=== PATIENT | male | born 1975 | race Two or more races ===

== ENCOUNTER 2018-11-11 13:10 | Inpatient (IN) | payer MEDICAID ==
--- NOTE | 2018-11-11 13:21 | EDM.PDOC ---
ED HPI GENERAL MEDICAL PROBLEM - General Stated Complaint: CHEST PAIN SOB Time Seen by Provider: 11/11/18 13:10 Source of Information: Reports: Patient, Family History Limitations: Reports: Respiratory Distress - History of Present Illness INITIAL COMMENTS - FREE TEXT/NARRATIVE: 42 y.o.w.m -smoker-[facility] do to and was transferred to the ED for further care. Pt C/P SSCP and sop. His O2 sat was 89/90% on RA on arrival, he was diaphoretic and had more pain when taking a deep breath. He can talk 2 minor sentences. No trauma, No N/D/D but has occ F/C. BP 135/76 Oc 91 % on RA Pulse 83 Temp 99.7 RR 24 Onset Date: 11/08/18 Onset Time: 08:00 Duration: Day(s):, Getting Worse, Intermittent Location: Reports: Chest Quality: Reports: Ache, Burning, Dull Severity: Moderate Improves with: Reports: Rest Worsens with: Reports: Movement Context: Reports: Other (fever, chills CP) Associated Symptoms: Reports: Chest Pain, Cough, Diaphoresis, Fever/Chills, Loss of Appetite, Weakness Chest Pain Score (Numeric/FACES): 8 - Related Data Allergies Allergy/AdvReac Type Severity Reaction Status Date / Time Penicillins Allergy Numbness Verified 03/24/15 03:26 Home Meds: Home Meds Gabapentin [Neurontin] 300 mg PO BID 08/02/13 [History] ClonazePAM [KlonoPIN] 0.5 mg PO BID PRN 01/13/14 [History] Amitriptyline [Elavil] 50,100 mg PO BEDTIME 07/06/14 [History] OXcarbazepine [Trileptal] 600 mg PO BID 07/06/14 [History] Ibuprofen 600 mg PO Q4H PRN 03/24/15 [History] Metoprolol Tartrate 25 mg PO DAILY 03/24/15 [History] Sertraline [Zoloft] 50 mg PO DAILY 03/24/15 [History] Past Medical History - Past Health History Medical/Surgical History: Denies Medical/Surgical History Social & Family History - Living Situation & Occupation Living situation: Reports: with Significant Other Occupation: Unemployed ED ROS GENERAL - Review of Systems Review Of Systems: See Below Constitutional: Reports: Weakness, Diaphoresis, Decreased Appetite, Weight Loss HEENT: Reports: No Symptoms Respiratory: Reports: Shortness of Breath, Wheezing, Pleuritic Chest Pain Cardiovascular: Reports: Chest Pain Endocrine: Reports: No Symptoms GI/Abdominal: Reports: No Symptoms : Reports: No Symptoms Musculoskeletal: Reports: No Symptoms Skin: Reports: No Symptoms Neurological: Reports: No Symptoms Psychiatric: Reports: No Symptoms Hematologic/Lymphatic: Reports: No Symptoms Immunologic: Reports: No Symptoms ED EXAM, GENERAL - Physical Exam Exam: See Below Exam Limited By: Physical Impairment (weak) General Appearance: Alert, Moderate Distress Eye Exam: Bilateral Eye: Normal Inspection Ears: Normal External Exam Ear Exam: Bilateral Ear: Auricle Normal Nose: Normal Inspection Throat/Mouth: Normal Lips, Normal Voice, No Airway Compromise, Other (poor dentition) Head: Atraumatic, Normocephalic Neck: Normal Inspection, Supple, Non-Tender Respiratory/Chest: Respiratory Distress, Crackles, Rhonchi, Wheezing, Pleural Rub Cardiovascular: Normal Peripheral Pulses, Regular Rate, Rhythm, No Edema, No Gallop, No JVD Peripheral Pulses: 2+: Brachial (R) GI/Abdominal: Normal Bowel Sounds, Soft, Non-Tender, No Organomegaly, Pelvis Stable (Male) Exam: Deferred Rectal (Males) Exam: Deferred Back Exam: Normal Inspection, Full Range of Motion Extremities: Normal Inspection, Normal Range of Motion, Non-Tender Neurological: Alert, Oriented, CN II-XII Intact, Normal Cognition, Normal Gait Psychiatric: Normal Affect, Normal Mood Skin Exam: Dry, Intact, Normal Color, Pallor Lymphatic: No Adenopathy EKG INTERPRETATION EKG Date: 11/11/18 Time: 13:30 Rhythm: NSR Rate (Beats/Min): 84 [place]: Normal P-Wave: Present QRS: Normal ST-T: Normal QT: Normal Comparison: NA - No Prior EKG Course - Vital Signs Text/Narrative:: 42 y.o.w.m -smoker-[facility] to and was transferred to the ED for further care. Pt C/P SSCP and sop. His O2 sat was 89/90% on RA on arrival, he was diaphoretic and had more pain when taking a deep breath. He can talk 2 minor sentences. No trauma, No N/D/D but has occ F/C. BP 135/76 Oc 91 % on RA Pulse 83 Temp 99.7 RR 24 PE: Pale, sick appearing 42 y.o.w.m with pleuritic C/P, F/C and sob Imaging: CXR: infiltrate LLL of lung, official report is pending Labs: CBC: Pos for WBC 14.7 PLts 675 K 3.2 Lactic acid Nl Impression: LLL infiltrate of lung, UDS pos for Amphetamine, hypokalemia Tx: ASA, Levoquine Potassium, Duo neb, O2 by NC 2.53 pm Consultation: Dr. Wylie, Hospitalist: Accepted the pt for admission Reexam: Improved. Plan: Admid to minor for inpatient. Last Recorded V/S: Last Vital Signs Temp 36.9 C 11/12/18 03:15 Pulse 83 11/11/18 13:15 Resp 17 11/12/18 03:15 BP 128/75 11/12/18 03:15 Pulse Ox 94 L 11/12/18 03:15 - Orders/Labs/Meds Orders: Active Orders 24 hr Category Date Time Status Patient Status [ADT] Routine ADT 11/11/18 14:58 Active Oxygen Therapy [RC] PRN Care 11/11/18 14:58 Active RT Aerosol Therapy [RC] ASDIRECTED Care 11/11/18 15:01 Active Up With Assistance [RC] 09,13,17,21 Care 11/11/18 14:58 Active Vital Signs [RC] 00,04,08,12,16,20 Care 11/11/18 14:58 Active Regular Diet [DIET] Diet 11/11/18 Breakfast Ordered CXR [Chest 1V Frontal] [CR] Stat Exams 11/11/18 14:34 Taken CULTURE BLOOD [BC] Urgent Lab 11/11/18 14:50 Received CULTURE BLOOD [BC] Urgent Lab 11/11/18 15:05 Received Albuterol [Proventil Neb Soln] Med 11/11/18 14:58 Active 2.5 mg NEB Q2H PRN Ondansetron [Zofran ODT] Med 11/11/18 14:58 Active 4 mg PO Q4H PRN Sodium Chloride 0.9% [Saline Flush] Med 11/11/18 14:58 Active 10 ml FLUSH ASDIRECTED PRN Blood Culture x2 Reflex Set [OM.PC] Urgent Oth 11/11/18 14:51 Ordered Peripheral IV Insertion Adult [OM.PC] Routine Oth 11/11/18 14:58 Ordered Resuscitation Status Routine Resus Stat 11/11/18 14:58 Ordered Medication Orders Acetaminophen (Tylenol) 650 mg PO Q4H PRN PRN Reason: Pain Last Admin: 11/11/18 19:55 Dose: 650 mg Albuterol (Proventil Neb Soln) 2.5 mg NEB Q2H PRN PRN Reason: Shortness Of Breath/wheezing Hydroxyzine HCl (Atarax) 25 mg PO BEDTIME PRN PRN Reason: Insomnia Last Admin: 11/12/18 03:05 Dose: 25 mg Levofloxacin/Dextrose 750 mg/ (Premix) 150 mls @ 100 mls/hr IV Q24H ORALIA Vancomycin HCl 1 gm/ Sodium (Chloride) 250 mls @ 167 mls/hr IV Q12H ORALIA Last Admin: 11/12/18 06:09 Dose: 167 mls/hr Admin: 11/11/18 19:02 Dose: 167 mls/hr Ondansetron HCl (Zofran Odt) 4 mg PO Q4H PRN PRN Reason: nausea, able to take PO Sodium Chloride (Saline Flush) 10 ml FLUSH ASDIRECTED PRN PRN Reason: Keep Vein Open Last Admin: 11/11/18 20:58 Dose: 10 ml Admin: 11/11/18 19:02 Dose: 10 ml Labs: Laboratory Tests 11/11/18 11/11/18 11/11/18 Range/Units 13:30 13:30 13:30 WBC 14.8 H (4.5-12.0) X10-3/uL RBC 5.13 (4.30-5.75) x10(6)uL Hgb 14.8 (11.5-15.5) g/dL Hct 43.1 (30.0-51.3) % MCV 84.0 (80-96) fL MCH 28.9 (27.7-33.6) pg MCHC 34.4 (32.2-35.4) g/dL RDW 13.3 (11.5-15.5) % Plt Count 675 H (125-369) X10(3)uL MPV 8.5 (7.4-10.4) fL Neut % (Auto) 78.1 (46-82) % Lymph % (Auto) 11.1 L (13-37) % Park % (Auto) 7.8 (4-12) % Eos % (Auto) 1 (1.0-5.0) % Baso % (Auto) 3 H (0-2) % Neut # (Auto) 11.5 H (1.6-8.3) # Lymph # (Auto) 1.6 (0.6-5.0) # Park # (Auto) 1.2 (0.0-1.3) # Eos # (Auto) 0.1 (0.0-0.8) # Baso # (Auto) 0.4 H (0.0-0.2) # PT 14.6 H (8.7-11.1) INR 1.52 H (0.89-1.13) D-Dimer, Quantitative 0.54 (0.0-0.59) mg/LFEU Sodium 135 (135-145) mmol/L Potassium 3.2 L (3.5-5.3) mmol/L Chloride 101 (100-110) mmol/L Carbon Dioxide 20 L (21-32) mmol/L BUN 15 (7-18) mg/dL Creatinine 0.9 (0.70-1.30) mg/dL Est Cr Clr Drug Dosing TNP Estimated GFR (MDRD) > 60 (>60) BUN/Creatinine Ratio 16.7 (9-20) Glucose 143 H (80-116) mg/dL Lactic Acid (0.4-2.2) mmol/L Calcium 8.8 (8.6-10.2) mg/dL Magnesium (1.8-2.5) mg/dL Troponin I (<0.017-0.056) ng/mL Urine Color (YELLOW) Urine Appearance (CLEAR) Urine pH (5.0-6.5) Ur Specific [place] (1.010-1.025) Urine Protein (NEGATIVE) mg/dL Urine Glucose (UA) (NEGATIVE) mg/dL Urine Ketones (NEGATIVE) mg/dL Urine Occult Blood (NEGATIVE) Urine Nitrite (NEGATIVE) Urine Bilirubin (NEGATIVE) Urine Urobilinogen (NEGATIVE) mg/dL Ur Leukocyte Esterase (NEGATIVE) Urine RBC (0) Urine WBC (0) Ur Squamous Epith Cells (NS,R,O) Urine Bacteria (NS) Urine Mucus (NS) Urine Opiates Screen (NEGATIVE) Ur Oxycodone Screen (NEGATIVE) Ur Propoxyphene Screen (NEGATIVE) Ur Barbituates Screen (NEGATIVE) Ur Tricyclics Screen (NEGATIVE) Ur Phencyclidine Scrn (NEGATIVE) Ur Amphetamine Screen (NEGATIVE) Urine MDMA Screen (NEGATIVE) U Benzodiazepines Scrn (NEGATIVE) U Cocaine Metab Screen (NEGATIVE) U Marijuana (THC) Screen (NEGATIVE) 11/11/18 11/11/18 11/11/18 Range/Units 13:30 13:30 14:30 WBC (4.5-12.0) X10-3/uL RBC (4.30-5.75) x10(6)uL Hgb (11.5-15.5) g/dL Hct (30.0-51.3) % MCV (80-96) fL MCH (27.7-33.6) pg MCHC (32.2-35.4) g/dL RDW (11.5-15.5) % Plt Count (125-369) X10(3)uL MPV (7.4-10.4) fL Neut % (Auto) (46-82) % Lymph % (Auto) (13-37) % Park % (Auto) (4-12) % Eos % (Auto) (1.0-5.0) % Baso % (Auto) (0-2) % Neut # (Auto) (1.6-8.3) # Lymph # (Auto) (0.6-5.0) # Park # (Auto) (0.0-1.3) # Eos # (Auto) (0.0-0.8) # Baso # (Auto) (0.0-0.2) # PT (8.7-11.1) INR (0.89-1.13) D-Dimer, Quantitative (0.0-0.59) mg/LFEU Sodium (135-145) mmol/L Potassium (3.5-5.3) mmol/L Chloride (100-110) mmol/L Carbon Dioxide (21-32) mmol/L BUN (7-18) mg/dL Creatinine (0.70-1.30) mg/dL Est Cr Clr Drug Dosing Estimated GFR (MDRD) (>60) BUN/Creatinine Ratio (9-20) Glucose (80-116) mg/dL Lactic Acid (0.4-2.2) mmol/L Calcium (8.6-10.2) mg/dL Magnesium 2.0 (1.8-2.5) mg/dL Troponin I < 0.017 L (<0.017-0.056) ng/mL Urine Color [place] (YELLOW) Urine Appearance Slightly cloudy (CLEAR) Urine pH 5.0 (5.0-6.5) Ur Specific [place] 1.020 (1.010-1.025) Urine Protein 30 H (NEGATIVE) mg/dL Urine Glucose (UA) Normal (NEGATIVE) mg/dL Urine Ketones 50 H (NEGATIVE) mg/dL Urine Occult Blood Negative (NEGATIVE) Urine Nitrite Negative (NEGATIVE) Urine Bilirubin Small H (NEGATIVE) Urine Urobilinogen 4 H (NEGATIVE) mg/dL Ur Leukocyte Esterase Negative (NEGATIVE) Urine RBC 0-5 (0) Urine WBC 0-5 (0) Ur Squamous Epith Cells Many H (NS,R,O) Urine Bacteria Moderate H (NS) Urine Mucus Many H (NS) Urine Opiates Screen (NEGATIVE) Ur Oxycodone Screen (NEGATIVE) Ur Propoxyphene Screen (NEGATIVE) Ur Barbituates Screen (NEGATIVE) Ur Tricyclics Screen (NEGATIVE) Ur Phencyclidine Scrn (NEGATIVE) Ur Amphetamine Screen (NEGATIVE) Urine MDMA Screen (NEGATIVE) U Benzodiazepines Scrn (NEGATIVE) U Cocaine Metab Screen (NEGATIVE) U Marijuana (THC) Screen (NEGATIVE) 11/11/18 11/11/18 Range/Units 14:30 14:50 WBC (4.5-12.0) X10-3/uL RBC (4.30-5.75) x10(6)uL Hgb (11.5-15.5) g/dL Hct (30.0-51.3) % MCV (80-96) fL MCH (27.7-33.6) pg MCHC (32.2-35.4) g/dL RDW (11.5-15.5) % Plt Count (125-369) X10(3)uL MPV (7.4-10.4) fL Neut % (Auto) (46-82) % Lymph % (Auto) (13-37) % Park % (Auto) (4-12) % Eos % (Auto) (1.0-5.0) % Baso % (Auto) (0-2) % Neut # (Auto) (1.6-8.3) # Lymph # (Auto) (0.6-5.0) # Park # (Auto) (0.0-1.3) # Eos # (Auto) (0.0-0.8) # Baso # (Auto) (0.0-0.2) # PT (8.7-11.1) INR (0.89-1.13) D-Dimer, Quantitative (0.0-0.59) mg/LFEU Sodium (135-145) mmol/L Potassium (3.5-5.3) mmol/L Chloride (100-110) mmol/L Carbon Dioxide (21-32) mmol/L BUN (7-18) mg/dL Creatinine (0.70-1.30) mg/dL Est Cr Clr Drug Dosing Estimated GFR (MDRD) (>60) BUN/Creatinine Ratio (9-20) Glucose (80-116) mg/dL Lactic Acid 1.0 (0.4-2.2) mmol/L Calcium (8.6-10.2) mg/dL Magnesium (1.8-2.5) mg/dL Troponin I (<0.017-0.056) ng/mL Urine Color (YELLOW) Urine Appearance (CLEAR) Urine pH (5.0-6.5) Ur Specific [place] (1.010-1.025) Urine Protein (NEGATIVE) mg/dL Urine Glucose (UA) (NEGATIVE) mg/dL Urine Ketones (NEGATIVE) mg/dL Urine Occult Blood (NEGATIVE) Urine Nitrite (NEGATIVE) Urine Bilirubin (NEGATIVE) Urine Urobilinogen (NEGATIVE) mg/dL Ur Leukocyte Esterase (NEGATIVE) Urine RBC (0) Urine WBC (0) Ur Squamous Epith Cells (NS,R,O) Urine Bacteria (NS) Urine Mucus (NS) Urine Opiates Screen Negative (NEGATIVE) Ur Oxycodone Screen Negative (NEGATIVE) Ur Propoxyphene Screen Negative (NEGATIVE) Ur Barbituates Screen Negative (NEGATIVE) Ur Tricyclics Screen Negative (NEGATIVE) Ur Phencyclidine Scrn Negative (NEGATIVE) Ur Amphetamine Screen Positive H (NEGATIVE) Urine MDMA Screen Negative (NEGATIVE) U Benzodiazepines Scrn Negative (NEGATIVE) U Cocaine Metab Screen Negative (NEGATIVE) U Marijuana (THC) Screen Negative (NEGATIVE) Meds: Medications Generic Name Dose Route Start Last Admin Trade Name Manuel PRN Reason Stop Dose Admin Acetaminophen 650 mg 11/11/18 19:39 11/11/18 19:55 Tylenol PO 650 mg Q4H PRN Administration Pain Albuterol 2.5 mg 11/11/18 14:58 Proventil Neb Soln NEB Q2H PRN Shortness Of Breath/wheezing Hydroxyzine HCl 25 mg 11/12/18 02:51 11/12/18 03:05 Atarax PO 25 mg BEDTIME PRN Administration Insomnia Levofloxacin/Dextrose 750 mg/ 150 mls @ 100 mls/hr 11/12/18 15:00 Premix IV Q24H ORALIA Vancomycin HCl 1 gm/ Sodium 250 mls @ 167 mls/hr 11/11/18 18:00 11/12/18 06: 09 Chloride IV 167 mls/hr Q12H ORALIA Administration Ondansetron HCl 4 mg 11/11/18 14:58 Zofran Odt PO Q4H PRN nausea, able to take PO Sodium Chloride 10 ml 11/11/18 14:58 11/11/18 20:58 Saline Flush FLUSH 10 ml ASDIRECTED PRN Administration Keep Vein Open Discontinued Medications Generic Name Dose Route Start Last Admin Trade Name Manuel PRN Reason Stop Dose Admin Levofloxacin/Dextrose 500 mg/ 100 mls @ 100 mls/hr 11/11/18 14:53 11/11/18 15 :17 Premix IV 11/11/18 15:52 100 mls/hr ONETIME ONE Administration Levofloxacin/Dextrose Confirm 11/11/18 15:08 11/11/18 16:54 Levaquin In D5w 500 Mg/100 Ml Administered 11/11/18 15:09 Not Given Dose 100 mls @ as directed IV .STK-MED ONE Ibuprofen 600 mg 11/11/18 22:09 11/11/18 22:15 Motrin PO 11/11/18 22:10 600 mg ONETIME ONE Administration Influenza Virus Vaccine 60 mcg 11/11/18 16:15 Fluzone Quad 1516-7176 Syringe IM 11/11/18 16:16 .ONCE ONE Tuberculin PPD 5 unit 11/11/18 18:35 11/11/18 19:07 Aplisol IDERM 11/11/18 18:36 5 unit ONETIME ONE Administration Vancomycin HCl Confirm 11/11/18 18:54 11/11/18 19:00 Vancomycin Administered 11/11/18 18:55 Not Given Dose 1 gm .ROUTE .STK-MED ONE Vancomycin HCl Confirm 11/12/18 06:03 11/12/18 06:10 Vancomycin Administered 11/12/18 06:04 Not Given Dose 1 gm .ROUTE .STK-MED ONE Departure - Departure Time of Disposition: 15:00 Disposition: Admitted As Inpatient 67 Condition: Fair Clinical Impression: Pneumonia - My Orders Last 24 Hours: My Active Orders 11/11/18 14:34 CXR [Chest 1V Frontal] [CR] Stat 11/11/18 14:50 CULTURE BLOOD [BC] Urgent 11/11/18 14:51 Blood Culture x2 Reflex Set [OM.PC] Urgent 11/11/18 14:58 Patient Status [ADT] Routine Oxygen Therapy [RC] PRN Up With Assistance [RC] 09,13,17,21 Vital Signs [RC] 00,04,08,12,16,20 Albuterol [Proventil Neb Soln] 2.5 mg NEB Q2H PRN Ondansetron [Zofran ODT] 4 mg PO Q4H PRN Sodium Chloride 0.9% [Saline Flush] 10 ml FLUSH ASDIRECTED PRN Peripheral IV Insertion Adult [OM.PC] Routine Resuscitation Status Routine 11/11/18 15:01 RT Aerosol Therapy [RC] ASDIRECTED 11/11/18 15:05 CULTURE BLOOD [BC] Urgent 11/11/18 Breakfast Regular Diet [DIET] - Assessment/Plan Last 24 Hours: My Active Orders 11/11/18 14:34 CXR [Chest 1V Frontal] [CR] Stat 11/11/18 14:50 CULTURE BLOOD [BC] Urgent 11/11/18 14:51 Blood Culture x2 Reflex Set [OM.PC] Urgent 11/11/18 14:58 Patient Status [ADT] Routine Oxygen Therapy [RC] PRN Up With Assistance [RC] 09,13,17,21 Vital Signs [RC] 00,04,08,12,16,20 Albuterol [Proventil Neb Soln] 2.5 mg NEB Q2H PRN Ondansetron [Zofran ODT] 4 mg PO Q4H PRN Sodium Chloride 0.9% [Saline Flush] 10 ml FLUSH ASDIRECTED PRN Peripheral IV Insertion Adult [OM.PC] Routine Resuscitation Status Routine 11/11/18 15:01 RT Aerosol Therapy [RC] ASDIRECTED 11/11/18 15:05 CULTURE BLOOD [BC] Urgent 11/11/18 Breakfast Regular Diet [DIET]
[2018-11-11] MEDS ORDERED: Levofloxacin/Dextrose 5%-Water 500 MG in Premix Bag 1 BAG IV ONE (14:53)
[2018-11-11] MEDS ORDERED: Albuterol 0.083% 2.5 MG/3 ML Neb Soln NEB PRN (14:58)
[2018-11-11] MEDS ORDERED: Ondansetron 4 MG Tab.DIS PO PRN (14:58)
[2018-11-11] MEDS ORDERED: Levofloxacin/Dextrose 5%-Water 100 ML IV ONE (15:08)
[2018-11-11] MEDS ORDERED: Tuberculin, PPD 5 Units/0.1 ML 1 ML MDV IDERM ONE (18:35)
[2018-11-11] MEDS ORDERED: Vancomycin 1 GM SDV ONE (18:54)
[2018-11-11] MEDS: Sodium Chloride 0.9% 10 ML Syringe FLUSH PRN ×2 (19:02→20:58)
[2018-11-11] MEDS: Acetaminophen 325 MG Tab PO PRN (19:55)
[2018-11-11] MEDS ORDERED: Ibuprofen 600 MG Tab PO ONE (22:09)
[2018-11-12] MEDS ORDERED: hydrOXYzine HCl 25 MG Tab PO PRN (02:51)
[2018-11-12] MEDS ORDERED: Vancomycin 1 GM SDV ONE ×2 (06:03→20:46)
--- NOTE | 2018-11-12 10:13 | HP ---
ADMIT DATE: 11/11/2018 SUBJECTIVE: Andrew Phillips is a 42-year-old male, admitted yesterday with complicated pneumonia. He has been ill for about three weeks' duration. Cough, productive, intermittent, thick tenacious sputum, low-grade fever, and general disability. Decreased appetite present. He was admitted to the hospital for treatment. Laboratory studies showed a white count of 14,800, platelets of 675, and high neutrophils. D-dimer was normal. INR 1.52, uncertain reason. Lactic acid 1.0. Troponin 0. Urine noted ketones. Had a pretty good night. We did obtain a sputum. Microbiology, blood cultures negative. Negative A and B viral testing. OBJECTIVE: VITAL SIGNS: 36.9, 66, 128/75, 17, and 94% on 2 L. GENERAL: Appears comfortable. Speech was fluent. NECK: Benign. No JVD. CHEST: Decreased breath sounds. Rales lower two-thirds of left lung. Reasonably good air exchange of right lung. HEART: Distant heart sounds. No ectopy or murmur. ABDOMEN: Benign. SKIN: Without rash. ASSESSMENT: Complicated right-sided pneumonia. PLAN: Testing for tuberculosis, Mantoux on board. Respiratory precautions, presently on Levaquin and vancomycin. Allergy to penicillin, prevents the use of Unasyn. Aggressive RT treatment. Medications and care on board. Lengthy stay expected, TB testing planned. /[id number] ARIE/NIELS PAULINO
[2018-11-12] MEDS: Acetaminophen 325 MG Tab PO PRN ×3 (10:35→22:40)
[2018-11-12] MEDS ORDERED: Iopamidol 755 Mg/ML 100 ML Bottle IV ONE (11:56)
[2018-11-12] MEDS: Sodium Chloride 0.9% 10 ML Syringe FLUSH PRN ×2 (15:00→16:58)
[2018-11-12] MEDS: Levofloxacin/Dextrose 5%-Water 750 MG in Premix Bag 1 BAG IV SCH (15:20)
[2018-11-12] MEDS: NS + KCl 20mEq/L 1,000 ML IV SCH (19:30)
[2018-11-12] MEDS ORDERED: OXcarbazepine 300 MG Tab PO SCH (21:00)
[2018-11-12] MEDS: Gabapentin 300 MG Cap PO SCH (21:53)
[2018-11-13] MEDS ORDERED: Vancomycin 1 GM SDV ONE (01:11)
[2018-11-13] MEDS: NS + KCl 20mEq/L 1,000 ML IV SCH (06:35)
[2018-11-13] MEDS ORDERED: Vancomycin 1 GM, Vancomycin 500 MG in Sodium Chloride 0.9% 500 ML IV SCH (07:00)
[2018-11-13] MEDS ORDERED: Iopamidol 755 Mg/ML 100 ML Bottle IV ONE (08:01)
[2018-11-13] MEDS: Acetaminophen 325 MG Tab PO PRN ×2 (08:05→20:09)
[2018-11-13] MEDS: Vancomycin 1 GM, Vancomycin 500 MG in Sodium Chloride 0.9% 500 ML IV SCH ×3 (08:06→23:54)
[2018-11-13] MEDS ORDERED: Diatrizoate Meglumine/Diatrizoate Sodium 37% 30 ML Bottle PO SCH (08:15)
[2018-11-13] MEDS ORDERED: Metoprolol Tartrate 25 MG Tab PO SCH (09:00)
[2018-11-13] MEDS ORDERED: Sertraline 50 MG Tab PO SCH (09:00)
[2018-11-13] MEDS: Topiramate 50 MG Tab PO SCH (09:55)
[2018-11-13] MEDS: Sertraline 100 MG Tab PO SCH (09:55)
[2018-11-13] MEDS: Propranolol 80 MG Cap.ER PO SCH (09:56)
[2018-11-13] MEDS: Albuterol/Ipratropium 3.0-0.5 MG/3 ML Neb Soln NEB SCH ×3 (10:00→21:31)
[2018-11-13] MEDS: traMADol 50 MG Tab PO PRN (10:02)
[2018-11-13] MEDS: Gabapentin 300 MG Cap PO SCH ×2 (10:46→21:32)
--- NOTE | 2018-11-13 10:58 | HP ---
ADMISSION DATE: 11/11/2018 ADDENDUM: PAST MEDICAL HISTORY: Significant for previous remote vasectomy. No other operative procedures, hospitalizations, unusual childhood diseases, major injuries, or fractures. ALLERGIES: To penicillin. /[id number] ARIE/NIELS PAULINO
--- NOTE | 2018-11-13 11:55 | PN ---
DATE SEEN: 11/12/2018 SUBJECTIVE: Andrew Phillips is a 42-year-old [place] male, who was admitted with concerning symptoms. Probably, 3 weeks' duration of illness. Cough productive, tenacious sputum. Increasing disability and lethargy. Found to have an elevated white count. D- dimer was normal. Troponin was negative. Radiographs revealed involving problematic left lower lobe, right lingular lobe pneumonia. X-rays were confirmatory, CT noted. No other pathology. Great concern about a 50-pound weight loss. HIV testing performed. Tuberculosis skin test appears to be negative, QuantiFERON testing to be performed. Continues to be weak, fatigable, and tired. Laboratory studies of significance, 11/13/2018: White count 11,900, platelets 617. OBJECTIVE: VITAL SIGNS: 36.4, 65 is the pulse, 124/68, 93% on 1 L. GENERAL: Appears to be more comfortable. NECK: Benign. ENT: Mouth and oropharynx clear. Good hydration. CHEST: Decreased breath sounds in left lower lung field. HEART: No ectopy or murmur. ABDOMEN: Benign. LABORATORY DATA: Tuberculin skin test appears to be negative today at 48 hours. Sputum gram-positive cocci, gram-negative rods. Blood cultures continue to be negative. Testing for influenza A and B were negative. ASSESSMENT: Complicated pneumonia, origin undetermined. PLAN: We will continue levofloxacin and vancomycin, adjusted accordingly with pharmacy. Complementary care and well being. Expectations of lengthy stay, further testing to be followed. /[id number] /NIELS
[2018-11-13] MEDS ORDERED: NS + KCl 20mEq/L 1,000 ML IV SCH (14:30)
[2018-11-13] MEDS: Levofloxacin/Dextrose 5%-Water 750 MG in Premix Bag 1 BAG IV SCH (15:09)
[2018-11-13] MEDS: OXcarbazepine 300 MG Tab PO SCH (21:32)
[2018-11-14] MEDS: traMADol 50 MG Tab PO PRN ×2 (04:30→13:40)
[2018-11-14] MEDS: Albuterol/Ipratropium 3.0-0.5 MG/3 ML Neb Soln NEB SCH ×4 (06:39→20:24)
[2018-11-14] MEDS ORDERED: Sodium Chloride 0.9% 250 ML IV SCH (08:15)
[2018-11-14 08:21] LABS: HIV SCREEN 4TH GENERATION WRFX Non Reactive (Non Reactive)
[2018-11-14] MEDS: Vancomycin 1 GM, Vancomycin 500 MG in Sodium Chloride 0.9% 500 ML IV SCH ×3 (08:49→23:40)
[2018-11-14] MEDS: Propranolol 80 MG Cap.ER PO SCH (09:13)
[2018-11-14] MEDS: Topiramate 50 MG Tab PO SCH (09:13)
[2018-11-14] MEDS: Sertraline 100 MG Tab PO SCH (09:14)
--- NOTE | 2018-11-14 11:31 | PN ---
DATE SEEN: 11/14/2018 SUBJECTIVE: Andrew Phillips is a 42-year-old [place] male, admitted with pneumonia on 11/11/2018. Concerns about TB have resolved. Mantoux is negative. QuantiFERON pending. Better with less cough, feeling better. Appetite is improving. Fever has abated. White count has fallen from 14,800 to 12.3 with normal indices. Blood cultures negative; sputum culture grew a problematic MRSA, sensitive only to rifampin, not indicated, intermediate to what he is on vancomycin, and sensitive to ceftaroline. I spoke at length with Infectious Disease doctor from [place], Dr. Mondragon, rifampin not indicated, sulfa and vancomycin not long-term beneficial. On oral agent linezolid available, but on antidepressants, not allowed. We will proceed with ceftaroline therapy. This will be at 600 mg q.12 hours, medications would be available tomorrow. Chest x-ray from 11/14/2018 compared to 11/11/2018 revealed stability and some minimal interval clearing. Radiology's report to follow. Eating better and more comfortable. OBJECTIVE: VITAL SIGNS: 36.6, 97 kg, pulse 65 to 74, respirations 20, and 93% on 2 L. GENERAL: Appears much more comfortable. MOUTH AND OROPHARYNX: Clear. NECK: Benign. Thyroid small. CHEST: Decreased breath sounds, particularly left lower posterior lung field. HEART: No ectopy or murmur. ABDOMEN: Benign. ASSESSMENT: Complicated bilateral pneumonia, left greater than right. PLAN: We will switch to ceftaroline 600 mg tomorrow, continue vancomycin in the meantime, Levaquin appropriate. Duration of care, 7 to 21 days, likely with a shorter time. Allotment of this particular antibiotic, 10 day intervals. Pharmacy on board. Infectious Disease on board. /[id number] /NIELS
[2018-11-14] MEDS: Potassium Chloride 20 MEQ Tab.ER PO SCH (16:01)
[2018-11-14] MEDS: Sodium Chloride 0.9% 10 ML Syringe FLUSH PRN ×2 (16:06→18:54)
[2018-11-14] MEDS: Gabapentin 300 MG Cap PO SCH (20:24)
[2018-11-14] MEDS: OXcarbazepine 300 MG Tab PO SCH (20:25)
[2018-11-15] MEDS: Sodium Chloride 0.9% 10 ML Syringe FLUSH PRN ×3 (01:23→21:50)
[2018-11-15] MEDS: Albuterol/Ipratropium 3.0-0.5 MG/3 ML Neb Soln NEB SCH ×4 (06:17→20:42)
[2018-11-15] MEDS: traMADol 50 MG Tab PO PRN ×2 (09:13→16:07)
[2018-11-15] MEDS: Propranolol 80 MG Cap.ER PO SCH (09:18)
[2018-11-15] MEDS: Potassium Chloride 20 MEQ Tab.ER PO SCH (09:18)
[2018-11-15] MEDS: Sertraline 100 MG Tab PO SCH (09:19)
[2018-11-15] MEDS: Topiramate 50 MG Tab PO SCH (09:19)
--- NOTE | 2018-11-15 10:50 | PCM.PN ---
<Cleo Cabrera - Last Filed: 11/15/18 10:43> - General Info Date of Service: 11/15/18 Subjective Update: No overnight events. Patient reports feeling better. c/o cough with SOB. chest pain only when he coughs. he is tolerating diet well, no nausea or vomiting. had BM last night. - Review of Systems General: Reports: Weakness Pulmonary: Reports: Shortness of Breath, Pleuritic Chest Pain, Cough, Sputum Cardiovascular: Reports: No Symptoms, Chest Pain Gastrointestinal: Reports: No Symptoms Genitourinary: Reports: No Symptoms Neurological: Reports: No Symptoms Psychiatric: Reports: No Symptoms - Patient Data Vitals - Most Recent: Last Vital Signs Temp 37.3 C 11/15/18 04:00 Pulse 84 11/15/18 04:00 Resp 18 11/15/18 04:00 BP 122/74 11/15/18 04:00 Pulse Ox 91 L 11/15/18 04:00 Weight - Most Recent: 95.617 kg I&O - Last 24 Hours: Intake & Output 11/14/18 11/15/18 11/15/18 22:59 06:59 14:59 Intake Total 530 Balance 530 Bryce Results Last 24 Hours: Microbiology 11/11/18 15:05 Aerobic Blood Culture - Preliminary Blood - Venous - Lab Draw NO GROWTH AFTER 3 DAYS Anaerobic Blood Culture - Preliminary NO GROWTH AFTER 3 DAYS 11/11/18 14:50 Aerobic Blood Culture - Preliminary Blood - Venous NO GROWTH AFTER 3 DAYS Anaerobic Blood Culture - Preliminary NO GROWTH AFTER 3 DAYS Med Orders - Current: Current Medications Acetaminophen (Tylenol) 650 mg PO Q4H PRN PRN Reason: Pain Last Admin: 11/13/18 20:09 Dose: 650 mg Albuterol/Ipratropium (Duoneb 3.0-0.5 Mg/3 Ml) 3 ml NEB QIDRT [facility] Last Admin: 11/15/18 10:38 Dose: 3 ml Diatrizoate Meglum/Diatrizoate Sod (Gastrografin 37%) 30 ml PO . DIRECTED [facility] Last Admin: 11/13/18 08:47 Dose: 30 ml Gabapentin (Neurontin) 300 mg PO BEDTIME [facility] Last Admin: 11/14/18 20:24 Dose: 300 mg Sodium Chloride (Normal Saline) 250 mls @ 100 mls/hr IV ASDIRECTED [facility] Last Admin: 11/14/18 08:49 Dose: 100 mls/hr Ceftaroline Fosamil 600 mg/ (Sodium Chloride) 50 mls @ 50 mls/hr IV Q12H [facility] Last Admin: 11/15/18 10:19 Dose: 50 mls/hr Ondansetron HCl (Zofran Odt) 4 mg PO Q4H PRN PRN Reason: nausea, able to take PO Last Admin: 11/13/18 12:35 Dose: 4 mg Oxcarbazepine (Trileptal) 600 mg PO BEDTIME [facility] Last Admin: 11/14/18 20:25 Dose: 600 mg Potassium Chloride (Klor-Con M20) 20 meq PO DAILY [facility] Last Admin: 11/15/18 09:18 Dose: 20 meq Propranolol HCl (Inderal La) 160 mg PO DAILY [facility] Last Admin: 11/15/18 09:18 Dose: 160 mg Quetiapine Fumarate (Seroquel) 50 mg PO BEDTIME [facility] Last Admin: 11/14/18 20:24 Dose: 50 mg Sertraline HCl (Zoloft) 200 mg PO DAILY [facility] Last Admin: 11/15/18 09:19 Dose: 200 mg Sodium Chloride (Saline Flush) 10 ml FLUSH ASDIRECTED PRN PRN Reason: Keep Vein Open Last Admin: 11/15/18 09:22 Dose: 10 ml Topiramate (Topamax) 150 mg PO DAILY [facility] Last Admin: 11/15/18 09:19 Dose: 150 mg Tramadol HCl (Ultram) 100 mg PO Q6H PRN PRN Reason: Chest Pain Last Admin: 11/15/18 09:13 Dose: 100 mg Discontinued Medications Albuterol (Proventil Neb Soln) 2.5 mg NEB Q2H PRN PRN Reason: Shortness Of Breath/wheezing Amitriptyline HCl (Elavil) 1 - 2 mg PO BEDTIME [facility] Last Admin: 11/12/18 21:52 Dose: 100 mg Gabapentin (Neurontin) 300 mg PO BID [facility] Last Admin: 11/13/18 10:46 Dose: Not Given Hydroxyzine HCl (Atarax) 25 mg PO BEDTIME PRN PRN Reason: Insomnia Last Admin: 11/12/18 03:05 Dose: 25 mg Levofloxacin/Dextrose 500 mg/ (Premix) 100 mls @ 100 mls/hr IV ONETIME ONE Stop: 11/11/18 15:52 Last Admin: 11/11/18 15:17 Dose: 100 mls/hr Levofloxacin/Dextrose (Levaquin In D5w 500 Mg/100 Ml) Confirm Administered Dose 100 mls @ as directed IV .STK-MED ONE Stop: 11/11/18 15:09 Last Admin: 11/11/18 16:54 Dose: Not Given Levofloxacin/Dextrose 750 mg/ (Premix) 150 mls @ 100 mls/hr IV Q24H [facility] Last Admin: 11/13/18 15:09 Dose: 100 mls/hr Vancomycin HCl 1 gm/ Sodium (Chloride) 250 mls @ 167 mls/hr IV Q12H [facility] Last Admin: 11/12/18 06:09 Dose: 167 mls/hr Vancomycin HCl 1 gm/ Sodium (Chloride) 250 mls @ 250 mls/hr IV Q8H [facility] Last Admin: 11/13/18 08:50 Dose: Not Given Potassium Chloride/Sodium Chloride (Normal Saline With 20 Meq Kcl) 1,000 mls @ 125 mls/hr IV ASDIRECTED [facility] Stop: 11/13/18 14:29 Last Admin: 11/13/18 06:35 Dose: 125 mls/hr Vancomycin HCl 1 gm/Vancomycin HCl 500 mg/ Sodium Chloride 500 mls @ 333.333 mls/hr IV Q8H [facility] Last Admin: 11/13/18 08:51 Dose: Not Given Vancomycin HCl 1 gm/Vancomycin HCl 500 mg/ Sodium Chloride 500 mls @ 333.333 mls/hr IV Q8H [facility] Stop: 11/15/18 02:00 Last Admin: 11/14/18 23:40 Dose: 333.333 mls/hr Potassium Chloride/Sodium Chloride (Normal Saline With 20 Meq Kcl) 1,000 mls @ 125 mls/hr IV Q8H [facility] Last Admin: 11/13/18 15:08 Dose: 125 mls/hr Ibuprofen (Motrin) 600 mg PO ONETIME ONE Stop: 11/11/18 22:10 Last Admin: 11/11/18 22:15 Dose: 600 mg Influenza Virus Vaccine (Fluzone Quad 2505-2793 Syringe) 60 mcg IM .ONCE ONE Stop: 11/11/18 16:16 Iopamidol (Isovue-370 (76%)) 100 ml IV . DIRECTED ONE Stop: 11/12/18 11:57 Last Admin: 11/12/18 11:59 Dose: 85 ml Iopamidol (Isovue-370 (76%)) 100 ml IV . DIRECTED ONE Stop: 11/13/18 08:02 Last Admin: 11/13/18 08:47 Dose: 95 ml Metoprolol Tartrate (Lopressor) 25 mg PO DAILY [facility] Last Admin: 11/13/18 10:46 Dose: Not Given Oxcarbazepine (Trileptal) 600 mg PO BID [facility] Last Admin: 11/12/18 21:53 Dose: 600 mg Tuberculin PPD (Aplisol) 5 unit IDERM ONETIME ONE Stop: 11/11/18 18:36 Last Admin: 11/11/18 19:07 Dose: 5 unit Vancomycin HCl (Vancomycin) Confirm Administered Dose 1 gm .ROUTE .STK-MED ONE Stop: 11/11/18 18:55 Last Admin: 11/11/18 19:00 Dose: Not Given Vancomycin HCl (Vancomycin) Confirm Administered Dose 1 gm .ROUTE .STK-MED ONE Stop: 11/12/18 06:04 Last Admin: 11/12/18 06:10 Dose: Not Given Vancomycin HCl (Pharmacy To Dose - Vancomycin) 1 dose .XX ASDIRECTED [facility] Vancomycin HCl (Vancomycin) Confirm Administered Dose 1 gm .ROUTE .STK-MED ONE Stop: 11/12/18 20:47 Last Admin: 11/12/18 22:04 Dose: Not Given Vancomycin HCl (Vancomycin) Confirm Administered Dose 1 gm .ROUTE .STK-MED ONE Stop: 11/13/18 01:12 Last Admin: 11/13/18 06:10 Dose: Not Given - Exam Quality Assessment: Supplemental Oxygen (2 L NC ) General: Alert, Oriented, Cooperative, No Acute Distress HEENT: EOMI, Mucous Membr. Moist/[place] Neck: Supple Lungs: Decreased Breath Sounds Cardiovascular: Regular Rate, Regular Rhythm GI/Abdominal Exam: Normal Bowel Sounds, Soft, Non-Tender Extremities: Normal Inspection, Normal Range of Motion, Non-Tender, No Pedal Edema - Problem List & Annotations (1) Hypokalemia SNOMED Code(s): 20814905 Code(s): E87.6 - HYPOKALEMIA Status: Acute Current Visit: Yes (2) Pneumonia SNOMED Code(s): 456329567 Code(s): J18.9 - PNEUMONIA, UNSPECIFIED ORGANISM Status: Acute Current Visit: Yes (3) Anxiety SNOMED Code(s): 00850694 Code(s): F41.9 - ANXIETY DISORDER, UNSPECIFIED Status: Acute Current Visit: No - Problem List Review Problem List Initiated/Reviewed/Updated: Yes - Plan Plan:: Patient is started on Ceftaroline antibiotic. continue with respiratory treatment. monitor vital sign. Continue with oral K supplement, will repeat labs tomorrow <Levy Culp - Last Filed: 11/15/18 12:37> - Patient Data Vitals - Most Recent: Last Vital Signs Temp 98.2 F 11/15/18 09:00 Pulse 70 11/15/18 09:00 Resp 20 11/15/18 09:00 BP 122/72 11/15/18 09:00 Pulse Ox 91 L 11/15/18 09:00 I&O - Last 24 Hours: Intake & Output 11/14/18 11/15/18 11/15/18 22:59 06:59 14:59 Intake Total 530 Balance 530 Bryce Results Last 24 Hours: Microbiology 11/11/18 15:05 Aerobic Blood Culture - Preliminary Blood - Venous - Lab Draw NO GROWTH AFTER 3 DAYS Anaerobic Blood Culture - Preliminary NO GROWTH AFTER 3 DAYS 11/11/18 14:50 Aerobic Blood Culture - Preliminary Blood - Venous NO GROWTH AFTER 3 DAYS Anaerobic Blood Culture - Preliminary NO GROWTH AFTER 3 DAYS Med Orders - Current: Current Medications Acetaminophen (Tylenol) 650 mg PO Q4H PRN PRN Reason: Pain Last Admin: 11/13/18 20:09 Dose: 650 mg Albuterol/Ipratropium (Duoneb 3.0-0.5 Mg/3 Ml) 3 ml NEB QIDRT [facility] Last Admin: 11/15/18 10:38 Dose: 3 ml Diatrizoate Meglum/Diatrizoate Sod (Gastrografin 37%) 30 ml PO . DIRECTED [facility] Last Admin: 11/13/18 08:47 Dose: 30 ml Gabapentin (Neurontin) 300 mg PO BEDTIME [facility] Last Admin: 11/14/18 20:24 Dose: 300 mg Sodium Chloride (Normal Saline) 250 mls @ 100 mls/hr IV ASDIRECTED [facility] Last Admin: 11/14/18 08:49 Dose: 100 mls/hr Ceftaroline Fosamil 600 mg/ (Sodium Chloride) 50 mls @ 50 mls/hr IV Q12H [facility] Last Admin: 11/15/18 10:19 Dose: 50 mls/hr Ondansetron HCl (Zofran Odt) 4 mg PO Q4H PRN PRN Reason: nausea, able to take PO Last Admin: 11/13/18 12:35 Dose: 4 mg Oxcarbazepine (Trileptal) 600 mg PO BEDTIME [facility] Last Admin: 11/14/18 20:25 Dose: 600 mg Potassium Chloride (Klor-Con M20) 20 meq PO DAILY [facility] Last Admin: 11/15/18 09:18 Dose: 20 meq Propranolol HCl (Inderal La) 160 mg PO DAILY [facility] Last Admin: 11/15/18 09:18 Dose: 160 mg Quetiapine Fumarate (Seroquel) 50 mg PO BEDTIME [facility] Last Admin: 11/14/18 20:24 Dose: 50 mg Sertraline HCl (Zoloft) 200 mg PO DAILY [facility] Last Admin: 11/15/18 09:19 Dose: 200 mg Sodium Chloride (Saline Flush) 10 ml FLUSH ASDIRECTED PRN PRN Reason: Keep Vein Open Last Admin: 11/15/18 09:22 Dose: 10 ml Topiramate (Topamax) 150 mg PO DAILY [facility] Last Admin: 11/15/18 09:19 Dose: 150 mg Tramadol HCl (Ultram) 100 mg PO Q6H PRN PRN Reason: Chest Pain Last Admin: 11/15/18 09:13 Dose: 100 mg Discontinued Medications Albuterol (Proventil Neb Soln) 2.5 mg NEB Q2H PRN PRN Reason: Shortness Of Breath/wheezing Amitriptyline HCl (Elavil) 1 - 2 mg PO BEDTIME [facility] Last Admin: 11/12/18 21:52 Dose: 100 mg Gabapentin (Neurontin) 300 mg PO BID [facility] Last Admin: 11/13/18 10:46 Dose: Not Given Hydroxyzine HCl (Atarax) 25 mg PO BEDTIME PRN PRN Reason: Insomnia Last Admin: 11/12/18 03:05 Dose: 25 mg Levofloxacin/Dextrose 500 mg/ (Premix) 100 mls @ 100 mls/hr IV ONETIME ONE Stop: 11/11/18 15:52 Last Admin: 11/11/18 15:17 Dose: 100 mls/hr Levofloxacin/Dextrose (Levaquin In D5w 500 Mg/100 Ml) Confirm Administered Dose 100 mls @ as directed IV .STK-MED ONE Stop: 11/11/18 15:09 Last Admin: 11/11/18 16:54 Dose: Not Given Levofloxacin/Dextrose 750 mg/ (Premix) 150 mls @ 100 mls/hr IV Q24H [facility] Last Admin: 11/13/18 15:09 Dose: 100 mls/hr Vancomycin HCl 1 gm/ Sodium (Chloride) 250 mls @ 167 mls/hr IV Q12H [facility] Last Admin: 11/12/18 06:09 Dose: 167 mls/hr Vancomycin HCl 1 gm/ Sodium (Chloride) 250 mls @ 250 mls/hr IV Q8H [facility] Last Admin: 11/13/18 08:50 Dose: Not Given Potassium Chloride/Sodium Chloride (Normal Saline With 20 Meq Kcl) 1,000 mls @ 125 mls/hr IV ASDIRECTED [facility] Stop: 11/13/18 14:29 Last Admin: 11/13/18 06:35 Dose: 125 mls/hr Vancomycin HCl 1 gm/Vancomycin HCl 500 mg/ Sodium Chloride 500 mls @ 333.333 mls/hr IV Q8H [facility] Last Admin: 11/13/18 08:51 Dose: Not Given Vancomycin HCl 1 gm/Vancomycin HCl 500 mg/ Sodium Chloride 500 mls @ 333.333 mls/hr IV Q8H [facility] Stop: 11/15/18 02:00 Last Admin: 11/14/18 23:40 Dose: 333.333 mls/hr Potassium Chloride/Sodium Chloride (Normal Saline With 20 Meq Kcl) 1,000 mls @ 125 mls/hr IV Q8H [facility] Last Admin: 11/13/18 15:08 Dose: 125 mls/hr Ibuprofen (Motrin) 600 mg PO ONETIME ONE Stop: 11/11/18 22:10 Last Admin: 11/11/18 22:15 Dose: 600 mg Influenza Virus Vaccine (Fluzone Quad [id number] Syringe) 60 mcg IM .ONCE ONE Stop: 11/11/18 16:16 Iopamidol (Isovue-370 (76%)) 100 ml IV . DIRECTED ONE Stop: 11/12/18 11:57 Last Admin: 11/12/18 11:59 Dose: 85 ml Iopamidol (Isovue-370 (76%)) 100 ml IV . DIRECTED ONE Stop: 11/13/18 08:02 Last Admin: 11/13/18 08:47 Dose: 95 ml Metoprolol Tartrate (Lopressor) 25 mg PO DAILY [facility] Last Admin: 11/13/18 10:46 Dose: Not Given Oxcarbazepine (Trileptal) 600 mg PO BID [facility] Last Admin: 11/12/18 21:53 Dose: 600 mg Tuberculin PPD (Aplisol) 5 unit IDERM ONETIME ONE Stop: 11/11/18 18:36 Last Admin: 11/11/18 19:07 Dose: 5 unit Vancomycin HCl (Vancomycin) Confirm Administered Dose 1 gm .ROUTE .STK-MED ONE Stop: 11/11/18 18:55 Last Admin: 11/11/18 19:00 Dose: Not Given Vancomycin HCl (Vancomycin) Confirm Administered Dose 1 gm .ROUTE .STK-MED ONE Stop: 11/12/18 06:04 Last Admin: 11/12/18 06:10 Dose: Not Given Vancomycin HCl (Pharmacy To Dose - Vancomycin) 1 dose .XX ASDIRECTED [facility] Vancomycin HCl (Vancomycin) Confirm Administered Dose 1 gm .ROUTE .STK-MED ONE Stop: 11/12/18 20:47 Last Admin: 11/12/18 22:04 Dose: Not Given Vancomycin HCl (Vancomycin) Confirm Administered Dose 1 gm .ROUTE .STK-MED ONE Stop: 11/13/18 01:12 Last Admin: 11/13/18 06:10 Dose: Not Given - Plan Plan:: I examined the patient with the resident and agree with the plan as outlined
[2018-11-15] MEDS: Gabapentin 300 MG Cap PO SCH (20:42)
[2018-11-15] MEDS: OXcarbazepine 300 MG Tab PO SCH (20:43)
[2018-11-15] MEDS: Sodium Chloride 0.9% 10 ML Syringe FLUSH SCH ×2 (21:20→21:25)
[2018-11-16] MEDS: Albuterol/Ipratropium 3.0-0.5 MG/3 ML Neb Soln NEB SCH ×4 (06:21→20:33)
[2018-11-16] MEDS: Topiramate 50 MG Tab PO SCH (09:10)
[2018-11-16] MEDS: Sertraline 100 MG Tab PO SCH (09:10)
[2018-11-16] MEDS: Potassium Chloride 20 MEQ Tab.ER PO SCH (09:10)
[2018-11-16] MEDS: Propranolol 80 MG Cap.ER PO SCH (09:10)
[2018-11-16] MEDS: Sodium Chloride 0.9% 10 ML Syringe FLUSH SCH ×2 (09:11→21:37)
--- NOTE | 2018-11-16 09:23 | PCM.PN ---
- General Info Date of Service: 11/16/18 Subjective Update: Andrew complains of a cough, and postnasal drainage but denies anyfever.He's been walking the halls and a PICC line was placed yesterday in anticipation for prolonged IV antibiotics. He still needs labeled 1-2 L of oxygenation to keep sats above 90-92%. Functional Status: Reports: Pain Controlled - Review of Systems General: Reports: No Symptoms Pulmonary: Reports: Sputum Cardiovascular: Reports: No Symptoms Gastrointestinal: Reports: No Symptoms - Patient Data Vitals - Most Recent: Last Vital Signs Temp 98.1 F 11/16/18 08:00 Pulse 66 11/16/18 08:00 Resp 20 11/16/18 08:00 BP 118/70 11/16/18 08:00 Pulse Ox 91 L 11/16/18 08:00 Weight - Most Recent: 95.799 kg I&O - Last 24 Hours: Intake & Output 11/15/18 11/16/18 11/16/18 22:59 06:59 14:59 Intake Total 50 Balance 50 Lab Results Last 24 Hours: Laboratory Results - last 24 hr 11/16/18 11/16/18 Range/Units 06:20 06:20 WBC 12.6 H (4.5-12.0) X10-3/uL RBC 4.42 (4.30-5.75) x10(6)uL Hgb 12.6 (11.5-15.5) g/dL Hct 37.7 (30.0-51.3) % MCV 85.2 (80-96) fL MCH 28.6 (27.7-33.6) pg MCHC 33.5 (32.2-35.4) g/dL RDW 13.4 (11.5-15.5) % Plt Count 470 H (125-369) X10(3)uL MPV 7.9 (7.4-10.4) fL Neut % (Auto) 74.6 (46-82) % Lymph % (Auto) 16.5 (13-37) % [place] % (Auto) 6.3 (4-12) % Eos % (Auto) 2 (1.0-5.0) % Baso % (Auto) 1 (0-2) % Neut # (Auto) 9.4 H (1.6-8.3) # Lymph # (Auto) 2.1 (0.6-5.0) # [place] # (Auto) 0.8 (0.0-1.3) # Eos # (Auto) 0.2 (0.0-0.8) # Baso # (Auto) 0.1 (0.0-0.2) # Sodium 138 (135-145) mmol/L Potassium 3.3 L (3.5-5.3) mmol/L Chloride 105 (100-110) mmol/L Carbon Dioxide 24 (21-32) mmol/L BUN 6 L (7-18) mg/dL Creatinine 0.7 (0.70-1.30) mg/dL Est Cr Clr Drug Dosing 138.88 mL/min Estimated GFR (MDRD) > 60 (>60) BUN/Creatinine Ratio 8.6 L (9-20) Glucose 158 H (80-116) mg/dL Calcium 8.2 L (8.6-10.2) mg/dL Total Bilirubin 0.3 (0.1-1.3) mg/dL AST 40 H (5-25) IU/L ALT 109 H (12-36) U/L Alkaline Phosphatase 115 H (56-112) IU/L Total Protein 6.8 (6.0-8.0) g/dL Albumin 2.2 L (3.5-5.2) g/dL Globulin 4.6 g/dL Albumin/Globulin Ratio 0.5 Bryce Results Last 24 Hours: Microbiology 11/11/18 15:05 Aerobic Blood Culture - Preliminary Blood - Venous - Lab Draw NO GROWTH AFTER 4 DAYS Anaerobic Blood Culture - Preliminary NO GROWTH AFTER 4 DAYS 11/11/18 14:50 Aerobic Blood Culture - Preliminary Blood - Venous NO GROWTH AFTER 4 DAYS Anaerobic Blood Culture - Preliminary NO GROWTH AFTER 4 DAYS 11/14/18 10:00 Clostridium difficile Toxin A & B - Final Stool / Feces NEGATIVE CDIFF TOXIN 11/11/18 23:03 Gram Stain - Final Sputum - Expectorated Sputum Culture - Final Gram Positive Cocci Med Orders - Current: Current Medications Acetaminophen (Tylenol) 650 mg PO Q4H PRN PRN Reason: Pain Last Admin: 11/13/18 20:09 Dose: 650 mg Albuterol/Ipratropium (Duoneb 3.0-0.5 Mg/3 Ml) 3 ml NEB QIDRT [facility] Last Admin: 11/16/18 06:21 Dose: 3 ml Diatrizoate Meglum/Diatrizoate Sod (Gastrografin 37%) 30 ml PO . DIRECTED [facility] Last Admin: 11/13/18 08:47 Dose: 30 ml Gabapentin (Neurontin) 300 mg PO BEDTIME [facility] Last Admin: 11/15/18 20:42 Dose: 300 mg Sodium Chloride (Normal Saline) 250 mls @ 100 mls/hr IV ASDIRECTED [facility] Last Admin: 11/14/18 08:49 Dose: 100 mls/hr Ceftaroline Fosamil 600 mg/ (Sodium Chloride) 50 mls @ 50 mls/hr IV Q12H [facility] Last Admin: 11/16/18 08:55 Dose: 50 mls/hr Ondansetron HCl (Zofran Odt) 4 mg PO Q4H PRN PRN Reason: nausea, able to take PO Last Admin: 11/13/18 12:35 Dose: 4 mg Oxcarbazepine (Trileptal) 600 mg PO BEDTIME [facility] Last Admin: 11/15/18 20:43 Dose: 600 mg Potassium Chloride (Klor-Con M20) 20 meq PO DAILY [facility] Last Admin: 11/16/18 09:10 Dose: 20 meq Propranolol HCl (Inderal La) 160 mg PO DAILY [facility] Last Admin: 11/16/18 09:10 Dose: 160 mg Quetiapine Fumarate (Seroquel) 50 mg PO BEDTIME [facility] Last Admin: 11/15/18 20:43 Dose: 50 mg Sertraline HCl (Zoloft) 200 mg PO DAILY [facility] Last Admin: 11/16/18 09:10 Dose: 200 mg Sodium Chloride (Saline Flush) 10 ml FLUSH ASDIRECTED PRN PRN Reason: Keep Vein Open Last Admin: 11/15/18 21:50 Dose: 10 ml Sodium Chloride (Saline Flush) 10 ml FLUSH BID [facility] Last Admin: 11/16/18 09:11 Dose: 10 ml Topiramate (Topamax) 150 mg PO DAILY [facility] Last Admin: 11/16/18 09:10 Dose: 150 mg Tramadol HCl (Ultram) 100 mg PO Q6H PRN PRN Reason: Chest Pain Last Admin: 11/15/18 16:07 Dose: 100 mg Discontinued Medications Albuterol (Proventil Neb Soln) 2.5 mg NEB Q2H PRN PRN Reason: Shortness Of Breath/wheezing Amitriptyline HCl (Elavil) 1 - 2 mg PO BEDTIME [facility] Last Admin: 11/12/18 21:52 Dose: 100 mg Gabapentin (Neurontin) 300 mg PO BID [facility] Last Admin: 11/13/18 10:46 Dose: Not Given Hydroxyzine HCl (Atarax) 25 mg PO BEDTIME PRN PRN Reason: Insomnia Last Admin: 11/12/18 03:05 Dose: 25 mg Levofloxacin/Dextrose 500 mg/ (Premix) 100 mls @ 100 mls/hr IV ONETIME ONE Stop: 11/11/18 15:52 Last Admin: 11/11/18 15:17 Dose: 100 mls/hr Levofloxacin/Dextrose (Levaquin In D5w 500 Mg/100 Ml) Confirm Administered Dose 100 mls @ as directed IV .STK-MED ONE Stop: 11/11/18 15:09 Last Admin: 11/11/18 16:54 Dose: Not Given Levofloxacin/Dextrose 750 mg/ (Premix) 150 mls @ 100 mls/hr IV Q24H [facility] Last Admin: 11/13/18 15:09 Dose: 100 mls/hr Vancomycin HCl 1 gm/ Sodium (Chloride) 250 mls @ 167 mls/hr IV Q12H [facility] Last Admin: 11/12/18 06:09 Dose: 167 mls/hr Vancomycin HCl 1 gm/ Sodium (Chloride) 250 mls @ 250 mls/hr IV Q8H [facility] Last Admin: 11/13/18 08:50 Dose: Not Given Potassium Chloride/Sodium Chloride (Normal Saline With 20 Meq Kcl) 1,000 mls @ 125 mls/hr IV ASDIRECTED [facility] Stop: 11/13/18 14:29 Last Admin: 11/13/18 06:35 Dose: 125 mls/hr Vancomycin HCl 1 gm/Vancomycin HCl 500 mg/ Sodium Chloride 500 mls @ 333.333 mls/hr IV Q8H [facility] Last Admin: 11/13/18 08:51 Dose: Not Given Vancomycin HCl 1 gm/Vancomycin HCl 500 mg/ Sodium Chloride 500 mls @ 333.333 mls/hr IV Q8H [facility] Stop: 11/15/18 02:00 Last Admin: 11/14/18 23:40 Dose: 333.333 mls/hr Potassium Chloride/Sodium Chloride (Normal Saline With 20 Meq Kcl) 1,000 mls @ 125 mls/hr IV Q8H [facility] Last Admin: 11/13/18 15:08 Dose: 125 mls/hr Ibuprofen (Motrin) 600 mg PO ONETIME ONE Stop: 11/11/18 22:10 Last Admin: 11/11/18 22:15 Dose: 600 mg Influenza Virus Vaccine (Fluzone Quad [id number] Syringe) 60 mcg IM .ONCE ONE Stop: 11/11/18 16:16 Iopamidol (Isovue-370 (76%)) 100 ml IV . DIRECTED ONE Stop: 11/12/18 11:57 Last Admin: 11/12/18 11:59 Dose: 85 ml Iopamidol (Isovue-370 (76%)) 100 ml IV . DIRECTED ONE Stop: 11/13/18 08:02 Last Admin: 11/13/18 08:47 Dose: 95 ml Metoprolol Tartrate (Lopressor) 25 mg PO DAILY [facility] Last Admin: 11/13/18 10:46 Dose: Not Given Oxcarbazepine (Trileptal) 600 mg PO BID [facility] Last Admin: 11/12/18 21:53 Dose: 600 mg Tuberculin PPD (Aplisol) 5 unit IDERM ONETIME ONE Stop: 11/11/18 18:36 Last Admin: 11/11/18 19:07 Dose: 5 unit Vancomycin HCl (Vancomycin) Confirm Administered Dose 1 gm .ROUTE .STK-MED ONE Stop: 11/11/18 18:55 Last Admin: 11/11/18 19:00 Dose: Not Given Vancomycin HCl (Vancomycin) Confirm Administered Dose 1 gm .ROUTE .STK-MED ONE Stop: 11/12/18 06:04 Last Admin: 11/12/18 06:10 Dose: Not Given Vancomycin HCl (Pharmacy To Dose - Vancomycin) 1 dose .XX ASDIRECTED [facility] Vancomycin HCl (Vancomycin) Confirm Administered Dose 1 gm .ROUTE .STK-MED ONE Stop: 11/12/18 20:47 Last Admin: 11/12/18 22:04 Dose: Not Given Vancomycin HCl (Vancomycin) Confirm Administered Dose 1 gm .ROUTE .STK-MED ONE Stop: 11/13/18 01:12 Last Admin: 11/13/18 06:10 Dose: Not Given - Exam Quality Assessment: Supplemental Oxygen General: Alert, Oriented HEENT: Pupils Equal Neck: Supple Lungs: Crackles, Rales Cardiovascular: Regular Rate - Problem List & Annotations (1) Tobacco abuse SNOMED Code(s): 127397918 Code(s): Z72.0 - TOBACCO USE Status: Acute Current Visit: Yes (2) Migraine headache SNOMED Code(s): 23357637 Code(s): G43.909 - MIGRAINE, UNSP, NOT INTRACTABLE, WITHOUT STATUS MIGRAINOSUS Status: Acute Current Visit: Yes Qualifiers: Migraine type: without aura (3) Pneumonia SNOMED Code(s): 117108625 Code(s): J18.9 - PNEUMONIA, UNSPECIFIED ORGANISM Status: Acute Current Visit: Yes (4) Depressive disorder SNOMED Code(s): 87750734 Code(s): F32.9 - MAJOR DEPRESSIVE DISORDER, SINGLE EPISODE, UNSPECIFIED Status: Acute Current Visit: No - Problem List Review Problem List Initiated/Reviewed/Updated: Yes - My Orders Last 24 Hours: My Active Orders 11/15/18 21:00 Sodium Chloride 0.9% [Saline Flush] 10 ml FLUSH BID 11/15/18 21:20 Chest 1V Frontal [CR] Routine - Plan Plan:: I will plan to obtain a blood count Sunday morning and a chest x-ray, and discharge patient to home for outpatient antibiotic therapy between 7 and 21 days duration.
[2018-11-16] MEDS: Sodium Chloride 0.9% 10 ML Syringe FLUSH PRN (11:36)
[2018-11-16] MEDS: traMADol 50 MG Tab PO PRN (13:59)
[2018-11-16 15:08] LABS: QUANTIFERON MITOGEN VALUE >10.00 IU/mL (.); QUANTIFERON NIL VALUE 0.05 IU/mL (.); QUANTIFERON TB1 AG VALUE 0.06 IU/mL (.); QUANTIFERON TB2 AG VALUE 0.07 IU/mL (.); QUANTIFERON-TB GOLD PLUS Negative (Negative)
[2018-11-16] MEDS: Gabapentin 300 MG Cap PO SCH (20:34)
[2018-11-16] MEDS: OXcarbazepine 300 MG Tab PO SCH (20:34)
[2018-11-17] MEDS: Sertraline 100 MG Tab PO SCH (09:27)
[2018-11-17] MEDS: Topiramate 50 MG Tab PO SCH (09:27)
[2018-11-17] MEDS: Propranolol 80 MG Cap.ER PO SCH (09:27)
[2018-11-17] MEDS: Potassium Chloride 20 MEQ Tab.ER PO SCH (09:27)
[2018-11-17] MEDS: Sodium Chloride 0.9% 10 ML Syringe FLUSH PRN (09:30)
[2018-11-17] MEDS: Sodium Chloride 0.9% 10 ML Syringe FLUSH SCH ×2 (10:40→21:27)
[2018-11-17] MEDS: Albuterol/Ipratropium 3.0-0.5 MG/3 ML Neb Soln NEB SCH ×5 (11:40→20:28)
--- NOTE | 2018-11-17 13:14 | PCM.PN ---
- General Info Date of Service: 11/17/18 Subjective Update: Andrew complains of a cough, and postnasal drainage but denies anyfever.He's been walking the halls and a PICC line was placed yesterday in anticipation for prolonged IV antibiotics. He still needs labeled 1-2 L of oxygenation to keep sats above 90-92%. Functional Status: Reports: Pain Controlled - Review of Systems General: Reports: No Symptoms HEENT: Reports: No Symptoms Pulmonary: Reports: No Symptoms Cardiovascular: Reports: No Symptoms, Orthopnea Gastrointestinal: Reports: No Symptoms Genitourinary: Reports: No Symptoms - Patient Data Vitals - Most Recent: Last Vital Signs Temp 98.4 F 11/16/18 20:00 Pulse 71 11/16/18 20:00 Resp 18 11/16/18 20:00 BP 128/68 11/16/18 20:00 Pulse Ox 92 L 11/16/18 20:00 Weight - Most Recent: 95.799 kg I&O - Last 24 Hours: Intake & Output 11/16/18 11/17/18 11/17/18 22:59 06:59 14:59 Intake Total 50 Balance 50 Lab Results Last 24 Hours: Laboratory Results - last 24 hr 11/13/18 Range/Units 09:33 TB Test (QFT) Nil 0.05 (.) IU/mL TB Test (QFT) Mitogen >10.00 (.) IU/mL TB Test (QFT) Antigen 0.06 (.) IU/mL TB Test (QFT) 0.07 (.) IU/mL TB Positive Criteria Comment (.) TB Test (QFT) Interp Negative (Negative) Bryce Results Last 24 Hours: Microbiology 11/11/18 15:05 Aerobic Blood Culture - Final Blood - Venous - Lab Draw NO GROWTH AFTER 5 DAYS Anaerobic Blood Culture - Final NO GROWTH AFTER 5 DAYS 11/11/18 14:50 Aerobic Blood Culture - Final Blood - Venous NO GROWTH AFTER 5 DAYS Anaerobic Blood Culture - Final NO GROWTH AFTER 5 DAYS Med Orders - Current: Current Medications Acetaminophen (Tylenol) 650 mg PO Q4H PRN PRN Reason: Pain Last Admin: 11/13/18 20:09 Dose: 650 mg Albuterol/Ipratropium (Duoneb 3.0-0.5 Mg/3 Ml) 3 ml NEB QIDRT [place] Last Admin: 11/17/18 11:41 Dose: 3 ml Diatrizoate Meglum/Diatrizoate Sod (Gastrografin 37%) 30 ml PO . DIRECTED [facility] Last Admin: 11/13/18 08:47 Dose: 30 ml Gabapentin (Neurontin) 300 mg PO BEDTIME [facility] Last Admin: 11/16/18 20:34 Dose: 300 mg Sodium Chloride (Normal Saline) 250 mls @ 100 mls/hr IV ASDIRECTED [facility] Last Admin: 11/14/18 08:49 Dose: 100 mls/hr Ceftaroline Fosamil 600 mg/ (Sodium Chloride) 50 mls @ 50 mls/hr IV Q12H [facility] Last Admin: 11/17/18 09:45 Dose: 50 mls/hr Ondansetron HCl (Zofran Odt) 4 mg PO Q4H PRN PRN Reason: nausea, able to take PO Last Admin: 11/13/18 12:35 Dose: 4 mg Oxcarbazepine (Trileptal) 600 mg PO BEDTIME [facility] Last Admin: 11/16/18 20:34 Dose: 600 mg Potassium Chloride (Klor-Con M20) 20 meq PO DAILY [facility] Last Admin: 11/17/18 09:27 Dose: 20 meq Propranolol HCl (Inderal La) 160 mg PO DAILY [facility] Last Admin: 11/17/18 09:27 Dose: 160 mg Quetiapine Fumarate (Seroquel) 50 mg PO BEDTIME [facility] Last Admin: 11/16/18 20:34 Dose: 50 mg Sertraline HCl (Zoloft) 200 mg PO DAILY [facility] Last Admin: 11/17/18 09:27 Dose: 200 mg Sodium Chloride (Saline Flush) 10 ml FLUSH ASDIRECTED PRN PRN Reason: Keep Vein Open Last Admin: 11/17/18 09:30 Dose: 10 ml Sodium Chloride (Saline Flush) 10 ml FLUSH BID [facility] Last Admin: 11/17/18 10:40 Dose: 10 ml Topiramate (Topamax) 150 mg PO DAILY [facility] Last Admin: 11/17/18 09:27 Dose: 150 mg Tramadol HCl (Ultram) 100 mg PO Q6H PRN PRN Reason: Chest Pain Last Admin: 11/16/18 13:59 Dose: 100 mg Discontinued Medications Albuterol (Proventil Neb Soln) 2.5 mg NEB Q2H PRN PRN Reason: Shortness Of Breath/wheezing Amitriptyline HCl (Elavil) 1 - 2 mg PO BEDTIME [facility] Last Admin: 11/12/18 21:52 Dose: 100 mg Gabapentin (Neurontin) 300 mg PO BID [facility] Last Admin: 11/13/18 10:46 Dose: Not Given Hydroxyzine HCl (Atarax) 25 mg PO BEDTIME PRN PRN Reason: Insomnia Last Admin: 11/12/18 03:05 Dose: 25 mg Levofloxacin/Dextrose 500 mg/ (Premix) 100 mls @ 100 mls/hr IV ONETIME ONE Stop: 11/11/18 15:52 Last Admin: 11/11/18 15:17 Dose: 100 mls/hr Levofloxacin/Dextrose (Levaquin In D5w 500 Mg/100 Ml) Confirm Administered Dose 100 mls @ as directed IV .STK-MED ONE Stop: 11/11/18 15:09 Last Admin: 11/11/18 16:54 Dose: Not Given Levofloxacin/Dextrose 750 mg/ (Premix) 150 mls @ 100 mls/hr IV Q24H [facility] Last Admin: 11/13/18 15:09 Dose: 100 mls/hr Vancomycin HCl 1 gm/ Sodium (Chloride) 250 mls @ 167 mls/hr IV Q12H [facility] Last Admin: 11/12/18 06:09 Dose: 167 mls/hr Vancomycin HCl 1 gm/ Sodium (Chloride) 250 mls @ 250 mls/hr IV Q8H [facility] Last Admin: 11/13/18 08:50 Dose: Not Given Potassium Chloride/Sodium Chloride (Normal Saline With 20 Meq Kcl) 1,000 mls @ 125 mls/hr IV ASDIRECTED [facility] Stop: 11/13/18 14:29 Last Admin: 11/13/18 06:35 Dose: 125 mls/hr Vancomycin HCl 1 gm/Vancomycin HCl 500 mg/ Sodium Chloride 500 mls @ 333.333 mls/hr IV Q8H [facility] Last Admin: 11/13/18 08:51 Dose: Not Given Vancomycin HCl 1 gm/Vancomycin HCl 500 mg/ Sodium Chloride 500 mls @ 333.333 mls/hr IV Q8H [facility] Stop: 11/15/18 02:00 Last Admin: 11/14/18 23:40 Dose: 333.333 mls/hr Potassium Chloride/Sodium Chloride (Normal Saline With 20 Meq Kcl) 1,000 mls @ 125 mls/hr IV Q8H [facility] Last Admin: 11/13/18 15:08 Dose: 125 mls/hr Ibuprofen (Motrin) 600 mg PO ONETIME ONE Stop: 11/11/18 22:10 Last Admin: 11/11/18 22:15 Dose: 600 mg Influenza Virus Vaccine (Fluzone Quad [id number] Syringe) 60 mcg IM .ONCE ONE Stop: 11/11/18 16:16 Iopamidol (Isovue-370 (76%)) 100 ml IV . DIRECTED ONE Stop: 11/12/18 11:57 Last Admin: 11/12/18 11:59 Dose: 85 ml Iopamidol (Isovue-370 (76%)) 100 ml IV . DIRECTED ONE Stop: 11/13/18 08:02 Last Admin: 11/13/18 08:47 Dose: 95 ml Metoprolol Tartrate (Lopressor) 25 mg PO DAILY [facility] Last Admin: 11/13/18 10:46 Dose: Not Given Oxcarbazepine (Trileptal) 600 mg PO BID [facility] Last Admin: 11/12/18 21:53 Dose: 600 mg Tuberculin PPD (Aplisol) 5 unit IDERM ONETIME ONE Stop: 11/11/18 18:36 Last Admin: 11/11/18 19:07 Dose: 5 unit Vancomycin HCl (Vancomycin) Confirm Administered Dose 1 gm .ROUTE .STK-MED ONE Stop: 11/11/18 18:55 Last Admin: 11/11/18 19:00 Dose: Not Given Vancomycin HCl (Vancomycin) Confirm Administered Dose 1 gm .ROUTE .STK-MED ONE Stop: 11/12/18 06:04 Last Admin: 11/12/18 06:10 Dose: Not Given Vancomycin HCl (Pharmacy To Dose - Vancomycin) 1 dose .XX ASDIRECTED [facility] Vancomycin HCl (Vancomycin) Confirm Administered Dose 1 gm .ROUTE .STK-MED ONE Stop: 11/12/18 20:47 Last Admin: 11/12/18 22:04 Dose: Not Given Vancomycin HCl (Vancomycin) Confirm Administered Dose 1 gm .ROUTE .STK-MED ONE Stop: 11/13/18 01:12 Last Admin: 11/13/18 06:10 Dose: Not Given - Exam Quality Assessment: Supplemental Oxygen General: Alert HEENT: Pupils Equal Lungs: Crackles, Rales Cardiovascular: Regular Rate - Problem List & Annotations (1) Tobacco abuse SNOMED Code(s): 002055349 Code(s): Z72.0 - TOBACCO USE Status: Acute Current Visit: Yes (2) Migraine headache SNOMED Code(s): 00901126 Code(s): G43.909 - MIGRAINE, UNSP, NOT INTRACTABLE, WITHOUT STATUS MIGRAINOSUS Status: Acute Current Visit: Yes Qualifiers: Migraine type: without aura (3) Pneumonia SNOMED Code(s): 561672156 Code(s): J18.9 - PNEUMONIA, UNSPECIFIED ORGANISM Status: Acute Current Visit: Yes (4) Depressive disorder SNOMED Code(s): 00169905 Code(s): F32.9 - MAJOR DEPRESSIVE DISORDER, SINGLE EPISODE, UNSPECIFIED Status: Acute Current Visit: No - Problem List Review Problem List Initiated/Reviewed/Updated: Yes - My Orders Last 24 Hours: My Active Orders 11/17/18 13:12 CXR [Chest 2V] [CR] Routine - Plan Plan:: I will do a chest x-ray today. I Robitussin with codeine for cough. Possible discharge tomorrow with home meds and oxygen along the IV antibiotic PICC line
[2018-11-17] MEDS: Codeine/guaiFENesin 100-10 MG/5 ML Syrup 5 ML Cup PO SCH ×2 (14:32→20:28)
[2018-11-17] MEDS: predniSONE 20 MG Tab PO SCH ×2 (14:32→20:28)
[2018-11-17] MEDS: Gabapentin 300 MG Cap PO SCH (20:28)
[2018-11-17] MEDS: OXcarbazepine 300 MG Tab PO SCH (20:29)
[2018-11-18] MEDS: Albuterol/Ipratropium 3.0-0.5 MG/3 ML Neb Soln NEB SCH ×2 (06:27→11:00)
--- NOTE | 2018-11-18 08:37 | PCM.PN ---
Addendum entered and electronically signed by Cleo Cabrera MD 11/18/18 11:42: Original Note: <Cleo Cabrera - Last Filed: 11/18/18 08:40> - General Info Date of Service: 11/18/18 Subjective Update: Patient is feeling well today. he denies any complain. he is ready to go home - Review of Systems General: Reports: No Symptoms Pulmonary: Reports: Shortness of Breath, Cough Cardiovascular: Reports: No Symptoms Gastrointestinal: Reports: No Symptoms Genitourinary: Reports: No Symptoms Neurological: Reports: No Symptoms - Patient Data Vitals - Most Recent: Last Vital Signs Temp 36.6 C 11/18/18 00:00 Pulse 58 L 11/18/18 00:00 Resp 17 11/18/18 00:00 BP 110/70 11/18/18 00:00 Pulse Ox 92 L 11/18/18 00:00 Weight - Most Recent: 93.032 kg I&O - Last 24 Hours: Intake & Output 11/17/18 11/18/18 11/18/18 22:59 06:59 14:59 Intake Total 50 Balance 50 Med Orders - Current: Current Medications Acetaminophen (Tylenol) 650 mg PO Q4H PRN PRN Reason: Pain Last Admin: 11/13/18 20:09 Dose: 650 mg Albuterol/Ipratropium (Duoneb 3.0-0.5 Mg/3 Ml) 3 ml NEB QIDRT [facility] Last Admin: 11/18/18 06:27 Dose: 3 ml Diatrizoate Meglum/Diatrizoate Sod (Gastrografin 37%) 30 ml PO . DIRECTED [facility] Last Admin: 11/13/18 08:47 Dose: 30 ml Gabapentin (Neurontin) 300 mg PO BEDTIME [facility] Last Admin: 11/17/18 20:28 Dose: 300 mg Guaifenesin/Codeine Phosphate (Robitussin Ac) 10 ml PO TID [facility] Last Admin: 11/17/18 20:28 Dose: 10 ml Sodium Chloride (Normal Saline) 250 mls @ 100 mls/hr IV ASDIRECTED [facility] Last Admin: 11/14/18 08:49 Dose: 100 mls/hr Ceftaroline Fosamil 600 mg/ (Sodium Chloride) 50 mls @ 50 mls/hr IV Q12H [facility] Last Admin: 11/17/18 20:35 Dose: 50 mls/hr Ondansetron HCl (Zofran Odt) 4 mg PO Q4H PRN PRN Reason: nausea, able to take PO Last Admin: 11/13/18 12:35 Dose: 4 mg Oxcarbazepine (Trileptal) 600 mg PO BEDTIME [facility] Last Admin: 11/17/18 20:29 Dose: 600 mg Potassium Chloride (Klor-Con M20) 20 meq PO DAILY [facility] Last Admin: 11/17/18 09:27 Dose: 20 meq Prednisone (Prednisone) 20 mg PO BID [facility] Last Admin: 11/17/18 20:28 Dose: 20 mg Propranolol HCl (Inderal La) 160 mg PO DAILY [facility] Last Admin: 11/17/18 09:27 Dose: 160 mg Quetiapine Fumarate (Seroquel) 50 mg PO BEDTIME [facility] Last Admin: 11/17/18 20:29 Dose: 50 mg Sertraline HCl (Zoloft) 200 mg PO DAILY [facility] Last Admin: 11/17/18 09:27 Dose: 200 mg Sodium Chloride (Saline Flush) 10 ml FLUSH ASDIRECTED PRN PRN Reason: Keep Vein Open Last Admin: 11/17/18 09:30 Dose: 10 ml Sodium Chloride (Saline Flush) 10 ml FLUSH BID [facility] Last Admin: 11/17/18 21:27 Dose: 10 ml Topiramate (Topamax) 150 mg PO DAILY [facility] Last Admin: 11/17/18 09:27 Dose: 150 mg Discontinued Medications Albuterol (Proventil Neb Soln) 2.5 mg NEB Q2H PRN PRN Reason: Shortness Of Breath/wheezing Amitriptyline HCl (Elavil) 1 - 2 mg PO BEDTIME [facility] Last Admin: 11/12/18 21:52 Dose: 100 mg Gabapentin (Neurontin) 300 mg PO BID [facility] Last Admin: 11/13/18 10:46 Dose: Not Given Hydroxyzine HCl (Atarax) 25 mg PO BEDTIME PRN PRN Reason: Insomnia Last Admin: 11/12/18 03:05 Dose: 25 mg Levofloxacin/Dextrose 500 mg/ (Premix) 100 mls @ 100 mls/hr IV ONETIME ONE Stop: 11/11/18 15:52 Last Admin: 11/11/18 15:17 Dose: 100 mls/hr Levofloxacin/Dextrose (Levaquin In D5w 500 Mg/100 Ml) Confirm Administered Dose 100 mls @ as directed IV .STK-MED ONE Stop: 11/11/18 15:09 Last Admin: 11/11/18 16:54 Dose: Not Given Levofloxacin/Dextrose 750 mg/ (Premix) 150 mls @ 100 mls/hr IV Q24H [facility] Last Admin: 11/13/18 15:09 Dose: 100 mls/hr Vancomycin HCl 1 gm/ Sodium (Chloride) 250 mls @ 167 mls/hr IV Q12H [facility] Last Admin: 11/12/18 06:09 Dose: 167 mls/hr Vancomycin HCl 1 gm/ Sodium (Chloride) 250 mls @ 250 mls/hr IV Q8H [facility] Last Admin: 11/13/18 08:50 Dose: Not Given Potassium Chloride/Sodium Chloride (Normal Saline With 20 Meq Kcl) 1,000 mls @ 125 mls/hr IV ASDIRECTED [facility] Stop: 11/13/18 14:29 Last Admin: 11/13/18 06:35 Dose: 125 mls/hr Vancomycin HCl 1 gm/Vancomycin HCl 500 mg/ Sodium Chloride 500 mls @ 333.333 mls/hr IV Q8H [facility] Last Admin: 11/13/18 08:51 Dose: Not Given Vancomycin HCl 1 gm/Vancomycin HCl 500 mg/ Sodium Chloride 500 mls @ 333.333 mls/hr IV Q8H [facility] Stop: 11/15/18 02:00 Last Admin: 11/14/18 23:40 Dose: 333.333 mls/hr Potassium Chloride/Sodium Chloride (Normal Saline With 20 Meq Kcl) 1,000 mls @ 125 mls/hr IV Q8H [facility] Last Admin: 11/13/18 15:08 Dose: 125 mls/hr Ibuprofen (Motrin) 600 mg PO ONETIME ONE Stop: 11/11/18 22:10 Last Admin: 11/11/18 22:15 Dose: 600 mg Influenza Virus Vaccine (Fluzone Quad [id number] Syringe) 60 mcg IM .ONCE ONE Stop: 11/11/18 16:16 Iopamidol (Isovue-370 (76%)) 100 ml IV . DIRECTED ONE Stop: 11/12/18 11:57 Last Admin: 11/12/18 11:59 Dose: 85 ml Iopamidol (Isovue-370 (76%)) 100 ml IV . DIRECTED ONE Stop: 11/13/18 08:02 Last Admin: 11/13/18 08:47 Dose: 95 ml Metoprolol Tartrate (Lopressor) 25 mg PO DAILY [facility] Last Admin: 11/13/18 10:46 Dose: Not Given Oxcarbazepine (Trileptal) 600 mg PO BID [facility] Last Admin: 11/12/18 21:53 Dose: 600 mg Tramadol HCl (Ultram) 100 mg PO Q6H PRN PRN Reason: Chest Pain Last Admin: 11/16/18 13:59 Dose: 100 mg Tuberculin PPD (Aplisol) 5 unit IDERM ONETIME ONE Stop: 11/11/18 18:36 Last Admin: 11/11/18 19:07 Dose: 5 unit Vancomycin HCl (Vancomycin) Confirm Administered Dose 1 gm .ROUTE .STK-MED ONE Stop: 11/11/18 18:55 Last Admin: 11/11/18 19:00 Dose: Not Given Vancomycin HCl (Vancomycin) Confirm Administered Dose 1 gm .ROUTE .STK-MED ONE Stop: 11/12/18 06:04 Last Admin: 11/12/18 06:10 Dose: Not Given Vancomycin HCl (Pharmacy To Dose - Vancomycin) 1 dose .XX ASDIRECTED [facility] Vancomycin HCl (Vancomycin) Confirm Administered Dose 1 gm .ROUTE .STK-MED ONE Stop: 11/12/18 20:47 Last Admin: 11/12/18 22:04 Dose: Not Given Vancomycin HCl (Vancomycin) Confirm Administered Dose 1 gm .ROUTE .STK-MED ONE Stop: 11/13/18 01:12 Last Admin: 11/13/18 06:10 Dose: Not Given - Exam Quality Assessment: Supplemental Oxygen (2 L via NC ) General: Alert, Oriented, Cooperative, No Acute Distress HEENT: Pupils Equal, Pupils Reactive, Mucous Membr. Moist/[place] Neck: Supple Lungs: Decreased Breath Sounds (on the left side ) Cardiovascular: Regular Rate, Regular Rhythm GI/Abdominal Exam: Normal Bowel Sounds, Soft, Non-Tender Extremities: Normal Inspection, Normal Range of Motion, Non-Tender, No Pedal Edema - Problem List & Annotations (1) Hypokalemia SNOMED Code(s): 85533059 Code(s): E87.6 - HYPOKALEMIA Status: Acute Current Visit: Yes (2) Pneumonia SNOMED Code(s): 885013253 Code(s): J18.9 - PNEUMONIA, UNSPECIFIED ORGANISM Status: Acute Current Visit: Yes (3) Anxiety SNOMED Code(s): 39192595 Code(s): F41.9 - ANXIETY DISORDER, UNSPECIFIED Status: Acute Current Visit: Yes - Problem List Review Problem List Initiated/Reviewed/Updated: Yes - Plan Plan:: # PNA: Final sputum culture came back as MSSA. sensitive to Levaquin. will switch to oral levaquin, will do home oxygen eval prior to discharge. plan to discharge patient home today. follow up with ID outpatient # Hypokalemia: Patient is currently on oral K supplement. follow up with PCP with repeated labs in a week # Smoking: Patient reports that he is ready to quite. he is chronic smoker, he will need outpatient PFT to assess underlying COPD <Levy Culp - Last Filed: 11/18/18 08:58> - Patient Data Vitals - Most Recent: Last Vital Signs Temp 97.9 F 11/18/18 00:00 Pulse 58 L 11/18/18 00:00 Resp 17 11/18/18 00:00 BP 110/70 11/18/18 00:00 Pulse Ox 92 L 11/18/18 00:00 I&O - Last 24 Hours: Intake & Output 11/17/18 11/18/18 11/18/18 22:59 06:59 14:59 Intake Total 50 Balance 50 Med Orders - Current: Current Medications Acetaminophen (Tylenol) 650 mg PO Q4H PRN PRN Reason: Pain Last Admin: 11/13/18 20:09 Dose: 650 mg Albuterol/Ipratropium (Duoneb 3.0-0.5 Mg/3 Ml) 3 ml NEB QIDRT [facility] Last Admin: 11/18/18 06:27 Dose: 3 ml Diatrizoate Meglum/Diatrizoate Sod (Gastrografin 37%) 30 ml PO . DIRECTED [facility] Last Admin: 11/13/18 08:47 Dose: 30 ml Gabapentin (Neurontin) 300 mg PO BEDTIME [facility] Last Admin: 11/17/18 20:28 Dose: 300 mg Guaifenesin/Codeine Phosphate (Robitussin Ac) 10 ml PO TID [facility] Last Admin: 11/17/18 20:28 Dose: 10 ml Sodium Chloride (Normal Saline) 250 mls @ 100 mls/hr IV ASDIRECTED [facility] Last Admin: 11/14/18 08:49 Dose: 100 mls/hr Ceftaroline Fosamil 600 mg/ (Sodium Chloride) 50 mls @ 50 mls/hr IV Q12H [facility] Last Admin: 11/17/18 20:35 Dose: 50 mls/hr Ondansetron HCl (Zofran Odt) 4 mg PO Q4H PRN PRN Reason: nausea, able to take PO Last Admin: 11/13/18 12:35 Dose: 4 mg Oxcarbazepine (Trileptal) 600 mg PO BEDTIME [facility] Last Admin: 11/17/18 20:29 Dose: 600 mg Potassium Chloride (Klor-Con M20) 20 meq PO DAILY [facility] Last Admin: 11/17/18 09:27 Dose: 20 meq Prednisone (Prednisone) 20 mg PO BID [facility] Last Admin: 11/17/18 20:28 Dose: 20 mg Propranolol HCl (Inderal La) 160 mg PO DAILY [facility] Last Admin: 11/17/18 09:27 Dose: 160 mg Quetiapine Fumarate (Seroquel) 50 mg PO BEDTIME [facility] Last Admin: 11/17/18 20:29 Dose: 50 mg Sertraline HCl (Zoloft) 200 mg PO DAILY [facility] Last Admin: 11/17/18 09:27 Dose: 200 mg Sodium Chloride (Saline Flush) 10 ml FLUSH ASDIRECTED PRN PRN Reason: Keep Vein Open Last Admin: 11/17/18 09:30 Dose: 10 ml Sodium Chloride (Saline Flush) 10 ml FLUSH BID [facility] Last Admin: 11/17/18 21:27 Dose: 10 ml Topiramate (Topamax) 150 mg PO DAILY [facility] Last Admin: 11/17/18 09:27 Dose: 150 mg Discontinued Medications Albuterol (Proventil Neb Soln) 2.5 mg NEB Q2H PRN PRN Reason: Shortness Of Breath/wheezing Amitriptyline HCl (Elavil) 1 - 2 mg PO BEDTIME [facility] Last Admin: 11/12/18 21:52 Dose: 100 mg Gabapentin (Neurontin) 300 mg PO BID [facility] Last Admin: 11/13/18 10:46 Dose: Not Given Hydroxyzine HCl (Atarax) 25 mg PO BEDTIME PRN PRN Reason: Insomnia Last Admin: 11/12/18 03:05 Dose: 25 mg Levofloxacin/Dextrose 500 mg/ (Premix) 100 mls @ 100 mls/hr IV ONETIME ONE Stop: 11/11/18 15:52 Last Admin: 11/11/18 15:17 Dose: 100 mls/hr Levofloxacin/Dextrose (Levaquin In D5w 500 Mg/100 Ml) Confirm Administered Dose 100 mls @ as directed IV .STK-MED ONE Stop: 11/11/18 15:09 Last Admin: 11/11/18 16:54 Dose: Not Given Levofloxacin/Dextrose 750 mg/ (Premix) 150 mls @ 100 mls/hr IV Q24H [facility] Last Admin: 11/13/18 15:09 Dose: 100 mls/hr Vancomycin HCl 1 gm/ Sodium (Chloride) 250 mls @ 167 mls/hr IV Q12H [facility] Last Admin: 11/12/18 06:09 Dose: 167 mls/hr Vancomycin HCl 1 gm/ Sodium (Chloride) 250 mls @ 250 mls/hr IV Q8H [facility] Last Admin: 11/13/18 08:50 Dose: Not Given Potassium Chloride/Sodium Chloride (Normal Saline With 20 Meq Kcl) 1,000 mls @ 125 mls/hr IV ASDIRECTED [facility] Stop: 11/13/18 14:29 Last Admin: 11/13/18 06:35 Dose: 125 mls/hr Vancomycin HCl 1 gm/Vancomycin HCl 500 mg/ Sodium Chloride 500 mls @ 333.333 mls/hr IV Q8H [facility] Last Admin: 11/13/18 08:51 Dose: Not Given Vancomycin HCl 1 gm/Vancomycin HCl 500 mg/ Sodium Chloride 500 mls @ 333.333 mls/hr IV Q8H [facility] Stop: 11/15/18 02:00 Last Admin: 11/14/18 23:40 Dose: 333.333 mls/hr Potassium Chloride/Sodium Chloride (Normal Saline With 20 Meq Kcl) 1,000 mls @ 125 mls/hr IV Q8H [facility] Last Admin: 11/13/18 15:08 Dose: 125 mls/hr Ibuprofen (Motrin) 600 mg PO ONETIME ONE Stop: 11/11/18 22:10 Last Admin: 11/11/18 22:15 Dose: 600 mg Influenza Virus Vaccine (Fluzone Quad [id number] Syringe) 60 mcg IM .ONCE ONE Stop: 11/11/18 16:16 Iopamidol (Isovue-370 (76%)) 100 ml IV . DIRECTED ONE Stop: 11/12/18 11:57 Last Admin: 11/12/18 11:59 Dose: 85 ml Iopamidol (Isovue-370 (76%)) 100 ml IV . DIRECTED ONE Stop: 11/13/18 08:02 Last Admin: 11/13/18 08:47 Dose: 95 ml Metoprolol Tartrate (Lopressor) 25 mg PO DAILY [facility] Last Admin: 11/13/18 10:46 Dose: Not Given Oxcarbazepine (Trileptal) 600 mg PO BID [facility] Last Admin: 11/12/18 21:53 Dose: 600 mg Tramadol HCl (Ultram) 100 mg PO Q6H PRN PRN Reason: Chest Pain Last Admin: 11/16/18 13:59 Dose: 100 mg Tuberculin PPD (Aplisol) 5 unit IDERM ONETIME ONE Stop: 11/11/18 18:36 Last Admin: 11/11/18 19:07 Dose: 5 unit Vancomycin HCl (Vancomycin) Confirm Administered Dose 1 gm .ROUTE .STK-MED ONE Stop: 11/11/18 18:55 Last Admin: 11/11/18 19:00 Dose: Not Given Vancomycin HCl (Vancomycin) Confirm Administered Dose 1 gm .ROUTE .STK-MED ONE Stop: 11/12/18 06:04 Last Admin: 11/12/18 06:10 Dose: Not Given Vancomycin HCl (Pharmacy To Dose - Vancomycin) 1 dose .XX ASDIRECTED [facility] Vancomycin HCl (Vancomycin) Confirm Administered Dose 1 gm .ROUTE .STK-MED ONE Stop: 11/12/18 20:47 Last Admin: 11/12/18 22:04 Dose: Not Given Vancomycin HCl (Vancomycin) Confirm Administered Dose 1 gm .ROUTE .STK-MED ONE Stop: 11/13/18 01:12 Last Admin: 11/13/18 06:10 Dose: Not Given - Problem List & Annotations (1) Tobacco abuse SNOMED Code(s): 115267780 Code(s): Z72.0 - TOBACCO USE Status: Acute Current Visit: Yes (2) Migraine headache SNOMED Code(s): 31884287 Code(s): G43.909 - MIGRAINE, UNSP, NOT INTRACTABLE, WITHOUT STATUS MIGRAINOSUS Status: Acute Current Visit: Yes Qualifiers: Migraine type: without aura (3) Pneumonia SNOMED Code(s): 003268912 Code(s): J18.9 - PNEUMONIA, UNSPECIFIED ORGANISM Status: Acute Current Visit: Yes (4) Depressive disorder SNOMED Code(s): 59663726 Code(s): F32.9 - MAJOR DEPRESSIVE DISORDER, SINGLE EPISODE, UNSPECIFIED Status: Acute Current Visit: No - My Orders Last 24 Hours: My Active Orders 11/17/18 13:12 CXR [Chest 2V] [CR] Routine 11/17/18 13:15 predniSONE 20 mg PO BID 11/17/18 14:00 Codeine/guaiFENesin [Robitussin AC] 10 ml PO TID - Plan Plan:: I personally saw patient and agree with assessment and plan as outlined above.
[2018-11-18] MEDS: Sodium Chloride 0.9% 10 ML Syringe FLUSH SCH (09:52)
[2018-11-18] MEDS: Topiramate 50 MG Tab PO SCH (10:01)
[2018-11-18] MEDS: Potassium Chloride 20 MEQ Tab.ER PO SCH (10:02)
[2018-11-18] MEDS: predniSONE 20 MG Tab PO SCH (10:02)
[2018-11-18] MEDS: Propranolol 80 MG Cap.ER PO SCH (10:02)
[2018-11-18] MEDS: Sertraline 100 MG Tab PO SCH (10:03)
[2018-11-18] MEDS: Codeine/guaiFENesin 100-10 MG/5 ML Syrup 5 ML Cup PO SCH ×2 (10:06→13:38)
[2018-11-18] MEDS: Sodium Chloride 0.9% 10 ML Syringe FLUSH PRN (10:54)
--- NOTE | 2018-11-18 11:11 | PCM.DCSUM1 ---
Discharge Summary - Hospital Course Free Text/Narrative:: Andrew Phillips is a 42 years old male with PMHx of depression, anxiety, chronic migraine and chronic smoker who presents to ED on 11/11 for not feeling well. Patient has been having SOB, cough for few weeks. he also endorse weakness , weight loss, night sweat. his symptoms got worse over the last 2 days prior to admission. In the ER, he was hypoxic required oxygen supplement to keep his sat >90%. labs showed WBC of 14, D-dimer negative, lactic acid at 1. Chest Xray showed LLL infiltrate. Patient admitted to hospital for CAP. he was started on Levaquin and Vancomycin. TB test came back negative. prelim sputum culture came back positive for MRSA. ID consulted with recommendation to switch antibiotic to Ceftaroline. Ceftaroline started on 11/15. final sputum culture came back with MSSA sensitive to Levaquin. Patient discharged home on Oral Levaquin 750mg BID for 7 days. also on Prednisone 20 mg for 5 days. Home oxygen eval prior to discharge was completed. Patient qualified for home oxygen portable device given he is ambulatory at home. Patient discharged home in medically stable condition. follow up with PCP in a week with repeated CBC, and BMP also to evaluate for underlying COPD with PFT outpatient. Patient to follow up with infectious disease outpatient. Diagnosis: Stroke: No - Discharge Data Discharge Date: 11/18/18 Discharge Disposition: Home, Self-Care 01 Condition: Good - Discharge Diagnosis/Problem(s) (1) Hypokalemia SNOMED Code(s): 91694985 ICD Code: E87.6 - HYPOKALEMIA Status: Acute Current Visit: Yes (2) Pneumonia SNOMED Code(s): 785895452 ICD Code: J18.9 - PNEUMONIA, UNSPECIFIED ORGANISM Status: Acute Current Visit: Yes (3) Anxiety SNOMED Code(s): 40761247 ICD Code: F41.9 - ANXIETY DISORDER, UNSPECIFIED Status: Acute Current Visit: Yes - Patient Instructions Diet: Regular Diet as Tolerated Activity: As Tolerated Driving: May Drive Today - Discharge Plan Prescriptions/Med Rec: Levofloxacin [Levaquin] 750 mg PO DAILY #10 tablet predniSONE 20 mg PO BID #10 tablet Home Medications: Home Meds Gabapentin [Neurontin] 300 mg PO BEDTIME 08/02/13 [History] OXcarbazepine [Trileptal] 600 mg PO BEDTIME 07/06/14 [History] Ibuprofen 400 mg PO Q4H PRN 03/24/15 [History] Cholecalciferol (Vitamin D3) [Vitamin D3] 1,000 unit PO DAILY 11/13/18 [History] Cyanocobalamin (Vitamin B-12) [Vitamin B-12] 1,000 mcg PO DAILY 11/13/18 [ History] Propranolol HCl [Inderal LA] 160 mg PO DAILY 11/13/18 [History] QUEtiapine [SEROquel] 50 mg PO BEDTIME 11/13/18 [History] Sertraline [Zoloft] 200 mg PO DAILY 11/13/18 [History] Topiramate [Topamax] 150 mg PO DAILY 11/13/18 [History] Levofloxacin [Levaquin] 750 mg PO DAILY #10 tablet 11/18/18 [Rx] predniSONE 20 mg PO BID #10 tablet 11/18/18 [Rx] Oxygen Therapy Mode: Nasal Cannula Oxygen Flow Rate (L/min): 2 Maintain SpO2% greater than: 90 Patient Handouts: Ceftaroline solution for injection, Venous Thromboembolism Prevention, Community-Acquired Pneumonia, Adult, [id number] Forms: ED Department Discharge Referrals: Levy Culp MD [Primary Care Provider] - 11/25/18 - Discharge Summary/Plan Comment DC Time >30 min.: Yes (discharge today ) - Patient Data Vitals - Most Recent: Last Vital Signs Temp 36.6 C 11/18/18 00:00 Pulse 58 L 11/18/18 00:00 Resp 17 11/18/18 00:00 BP 110/70 11/18/18 00:00 Pulse Ox 92 L 11/18/18 00:00 Weight - Most Recent: 93.032 kg I&O - Last 24 hours: Intake & Output 11/17/18 11/18/18 11/18/18 22:59 06:59 14:59 Intake Total 50 50 Balance 50 50 Med Orders - Current: Current Medications Acetaminophen (Tylenol) 650 mg PO Q4H PRN PRN Reason: Pain Last Admin: 11/13/18 20:09 Dose: 650 mg Albuterol/Ipratropium (Duoneb 3.0-0.5 Mg/3 Ml) 3 ml NEB QIDRT [place] Last Admin: 11/18/18 11:00 Dose: 3 ml Diatrizoate Meglum/Diatrizoate Sod (Gastrografin 37%) 30 ml PO . DIRECTED [facility] Last Admin: 11/13/18 08:47 Dose: 30 ml Gabapentin (Neurontin) 300 mg PO BEDTIME [facility] Last Admin: 11/17/18 20:28 Dose: 300 mg Guaifenesin/Codeine Phosphate (Robitussin Ac) 10 ml PO TID [facility] Last Admin: 11/18/18 10:06 Dose: 10 ml Sodium Chloride (Normal Saline) 250 mls @ 100 mls/hr IV ASDIRECTED [facility] Last Admin: 11/14/18 08:49 Dose: 100 mls/hr Ceftaroline Fosamil 600 mg/ (Sodium Chloride) 50 mls @ 50 mls/hr IV Q12H [facility] Last Admin: 11/18/18 09:52 Dose: 50 mls/hr Ondansetron HCl (Zofran Odt) 4 mg PO Q4H PRN PRN Reason: nausea, able to take PO Last Admin: 11/13/18 12:35 Dose: 4 mg Oxcarbazepine (Trileptal) 600 mg PO BEDTIME [facility] Last Admin: 11/17/18 20:29 Dose: 600 mg Potassium Chloride (Klor-Con M20) 20 meq PO DAILY [facility] Last Admin: 11/18/18 10:02 Dose: 20 meq Prednisone (Prednisone) 20 mg PO BID [facility] Last Admin: 11/18/18 10:02 Dose: 20 mg Propranolol HCl (Inderal La) 160 mg PO DAILY [facility] Last Admin: 11/18/18 10:02 Dose: 160 mg Quetiapine Fumarate (Seroquel) 50 mg PO BEDTIME [facility] Last Admin: 11/17/18 20:29 Dose: 50 mg Sertraline HCl (Zoloft) 200 mg PO DAILY [facility] Last Admin: 11/18/18 10:03 Dose: 200 mg Sodium Chloride (Saline Flush) 10 ml FLUSH ASDIRECTED PRN PRN Reason: Keep Vein Open Last Admin: 11/18/18 10:54 Dose: 10 ml Sodium Chloride (Saline Flush) 10 ml FLUSH BID [facility] Last Admin: 11/18/18 09:52 Dose: 10 ml Topiramate (Topamax) 150 mg PO DAILY [facility] Last Admin: 11/18/18 10:01 Dose: 150 mg Discontinued Medications Albuterol (Proventil Neb Soln) 2.5 mg NEB Q2H PRN PRN Reason: Shortness Of Breath/wheezing Amitriptyline HCl (Elavil) 1 - 2 mg PO BEDTIME [facility] Last Admin: 11/12/18 21:52 Dose: 100 mg Gabapentin (Neurontin) 300 mg PO BID [facility] Last Admin: 11/13/18 10:46 Dose: Not Given Hydroxyzine HCl (Atarax) 25 mg PO BEDTIME PRN PRN Reason: Insomnia Last Admin: 11/12/18 03:05 Dose: 25 mg Levofloxacin/Dextrose 500 mg/ (Premix) 100 mls @ 100 mls/hr IV ONETIME ONE Stop: 11/11/18 15:52 Last Admin: 11/11/18 15:17 Dose: 100 mls/hr Levofloxacin/Dextrose (Levaquin In D5w 500 Mg/100 Ml) Confirm Administered Dose 100 mls @ as directed IV .STK-MED ONE Stop: 11/11/18 15:09 Last Admin: 11/11/18 16:54 Dose: Not Given Levofloxacin/Dextrose 750 mg/ (Premix) 150 mls @ 100 mls/hr IV Q24H [facility] Last Admin: 11/13/18 15:09 Dose: 100 mls/hr Vancomycin HCl 1 gm/ Sodium (Chloride) 250 mls @ 167 mls/hr IV Q12H [facility] Last Admin: 11/12/18 06:09 Dose: 167 mls/hr Vancomycin HCl 1 gm/ Sodium (Chloride) 250 mls @ 250 mls/hr IV Q8H [facility] Last Admin: 11/13/18 08:50 Dose: Not Given Potassium Chloride/Sodium Chloride (Normal Saline With 20 Meq Kcl) 1,000 mls @ 125 mls/hr IV ASDIRECTED [facility] Stop: 11/13/18 14:29 Last Admin: 11/13/18 06:35 Dose: 125 mls/hr Vancomycin HCl 1 gm/Vancomycin HCl 500 mg/ Sodium Chloride 500 mls @ 333.333 mls/hr IV Q8H [facility] Last Admin: 11/13/18 08:51 Dose: Not Given Vancomycin HCl 1 gm/Vancomycin HCl 500 mg/ Sodium Chloride 500 mls @ 333.333 mls/hr IV Q8H [facility] Stop: 11/15/18 02:00 Last Admin: 11/14/18 23:40 Dose: 333.333 mls/hr Potassium Chloride/Sodium Chloride (Normal Saline With 20 Meq Kcl) 1,000 mls @ 125 mls/hr IV Q8H [facility] Last Admin: 11/13/18 15:08 Dose: 125 mls/hr Ibuprofen (Motrin) 600 mg PO ONETIME ONE Stop: 11/11/18 22:10 Last Admin: 11/11/18 22:15 Dose: 600 mg Influenza Virus Vaccine (Fluzone Quad [id number] Syringe) 60 mcg IM .ONCE ONE Stop: 11/11/18 16:16 Iopamidol (Isovue-370 (76%)) 100 ml IV . DIRECTED ONE Stop: 11/12/18 11:57 Last Admin: 11/12/18 11:59 Dose: 85 ml Iopamidol (Isovue-370 (76%)) 100 ml IV . DIRECTED ONE Stop: 11/13/18 08:02 Last Admin: 11/13/18 08:47 Dose: 95 ml Metoprolol Tartrate (Lopressor) 25 mg PO DAILY [facility] Last Admin: 11/13/18 10:46 Dose: Not Given Oxcarbazepine (Trileptal) 600 mg PO BID [facility] Last Admin: 11/12/18 21:53 Dose: 600 mg Tramadol HCl (Ultram) 100 mg PO Q6H PRN PRN Reason: Chest Pain Last Admin: 11/16/18 13:59 Dose: 100 mg Tuberculin PPD (Aplisol) 5 unit IDERM ONETIME ONE Stop: 11/11/18 18:36 Last Admin: 11/11/18 19:07 Dose: 5 unit Vancomycin HCl (Vancomycin) Confirm Administered Dose 1 gm .ROUTE .STK-MED ONE Stop: 11/11/18 18:55 Last Admin: 11/11/18 19:00 Dose: Not Given Vancomycin HCl (Vancomycin) Confirm Administered Dose 1 gm .ROUTE .STK-MED ONE Stop: 11/12/18 06:04 Last Admin: 11/12/18 06:10 Dose: Not Given Vancomycin HCl (Pharmacy To Dose - Vancomycin) 1 dose .XX ASDIRECTED [facility] Vancomycin HCl (Vancomycin) Confirm Administered Dose 1 gm .ROUTE .STK-MED ONE Stop: 11/12/18 20:47 Last Admin: 11/12/18 22:04 Dose: Not Given Vancomycin HCl (Vancomycin) Confirm Administered Dose 1 gm .ROUTE .[facility]-MED ONE Stop: 11/13/18 01:12 Last Admin: 11/13/18 06:10 Dose: Not Given
[2018-11-18 13:12] VITALS: BP 112/70
== END 2018-11-18 14:50 | disposition home or self-care (01) | DRG 137 ==
LOC: FB.ED 13:10 → UNDOADMIN 14:58 → FB.MS 14:58
PROVIDERS: ADMIT Family Medicine; ATTEND Family Medicine
PROC: 02H633Z Insertion of Infusion Device into Right Atrium, Percutaneous Approach (ICD-10-PCS; principal; 2018-11-15)
PROC: B244ZZZ Ultrasonography of Right Heart (ICD-10-PCS; 2018-11-15)
DX: J15.211 Pneumonia due to Methicillin susceptible Staphylococcus aureus (principal); R09.02 Hypoxemia; F17.210 Nicotine dependence, cigarettes, uncomplicated; Z99.81 Dependence on supplemental oxygen; E87.6 Hypokalemia; F41.9 Anxiety disorder, unspecified; F32.9 Major depressive disorder, single episode, unspecified; G43.909 Migraine, unspecified, not intractable, without status migrainosus; Z88.0 Allergy status to penicillin; Z11.1 Encounter for screening for respiratory tuberculosis; R63.4 Abnormal weight loss
CPT/HCPCS: 36415; 36569; 71045; 71046; 71260; 74177; 80048; 80053; 80202; 80305-QW; 81001; 83605; 83735; 84484; 85025; 85379; 85610; 85651; 86140; 86480; 86580; 87040; 87070; 87077; 87205; 87324; 87389; 87804; 87804-59; 94640; 96365; 99285; A9270-GY; J0712; J1956; J3370; J3480; J7040; J7050; J7620-GY; Q9963; Q9967

== ENCOUNTER 2022-12-16 19:03 | Emergency (ER) | payer MEDICAID ==
[2022-12-16 20:11] LABS: ESTIMATED GFR 94 mL/min (>60)
[2022-12-16 20:43] VITALS: BP 111/65; PULSE 52
[2022-12-16] MEDS ORDERED: Lactated Ringers 1,000 ML IV ONE (20:53)
[2022-12-16] MEDS ORDERED: Iopamidol 755 Mg/ML 100 ML Bottle IV ONE (21:05)
== END 2022-12-17 01:00 ==
LOC: FB.ED 19:03
DX: L29.9 Pruritus, unspecified (principal); F41.0 Panic disorder [episodic paroxysmal anxiety]; F32.A Depression, unspecified; R17 Unspecified jaundice; E87.6 Hypokalemia; F17.200 Nicotine dependence, unspecified, uncomplicated; E66.9 Obesity, unspecified; Z88.0 Allergy status to penicillin; Z68.38 Body mass index [BMI] 38.0-38.9, adult
CPT/HCPCS: 36415; 71046; 74178; 80053; 80307; 83605; 83690; 83735; 83880; 84484; 85025; 86140; 87040; 93005; 96360; 99285; J7120; Q9967; 74177

== ENCOUNTER 2023-06-05 13:18 | Emergency (ER) | payer MEDICARE ==
[2023-06-05] MEDS ORDERED: Lidocaine 1% 20 ML MDV INFILT ONE (13:19)
[2023-06-05] MEDS ORDERED: Bacitracin Oint 1 GM U/D Packet TOP ONE (13:44)
[2023-06-05 14:53] VITALS: BP 154/95; PULSE 54
== END 2023-06-05 14:55 | disposition home or self-care (01) ==
LOC: FB.ED 13:18
DX: S61.211A Laceration without foreign body of left index finger without damage to nail, initial encounter (principal); R20.0 Anesthesia of skin; F17.200 Nicotine dependence, unspecified, uncomplicated; I10 Essential (primary) hypertension; E66.9 Obesity, unspecified; Z88.0 Allergy status to penicillin; Z68.31 Body mass index [BMI] 31.0-31.9, adult
CPT/HCPCS: 12002; 99282

== ENCOUNTER 2025-06-22 09:04 | Emergency (ER) | payer MEDICAID, MEDICARE ==
[2025-06-22] MEDS: Nitroglycerin 0.4 MG Tab.SL SL PRN (09:10)
[2025-06-22] MEDS ORDERED: Sodium Chloride 0.9% 10 ML Syringe FLUSH PRN (09:18)
[2025-06-22] MEDS ORDERED: Heparin Sodium 5,000 Units/ML Vial IVPUSH ONE (09:28)
[2025-06-22] MEDS: Heparin Sodium 5,000 Units/ML Vial ONE (09:30)
[2025-06-22 09:32] LABS: BLOOD UREA NITROGEN,BUN 11 mg/dL (7-18); CARBON DIOXIDE,CO2 22 mmol/L (21-32); CHLORIDE,CL 105 mmol/L (100-110); CREATININE 1.1 mg/dL (0.70-1.30); EST CRCL DRUG DOSING (CG) 79.45 mL/min; ESTIMATED GFR 83 mL/min (>60); GLUCOSE RANDOM 151 mg/dL (80-116); POTASSIUM,K 3.3 mmol/L (3.5-5.3); SODIUM,NA 141 mmol/L (135-145)
[2025-06-22 09:38] LABS: A/G RATIO 1.1; ALANINE AMINOTRANSFERASE,ALT 20 U/L (12-36); ASPARTATE AMNIOTRANSFERASE,AST 18 IU/L (5-25); BILIRUBIN TOTAL 0.3 mg/dL (0.1-1.3); PROTEIN TOTAL,TP 7.2 g/dL (6.0-8.0)
[2025-06-22 09:48] VITALS: PULSE 56
[2025-06-22 09:49] LABS: BASOPHILS ABSOLUTE AUTO 0.1 x10-3/uL (0.0-0.3); BASOPHILS PERCENT AUTO 0.9 % (0.3-3.8); EOSINOPHILS ABSOLUTE AUTO 0.2 x10-3/uL (0.0-0.6); EOSINOPHILS PERCENT AUTO 2.6 % (0.1-6.8); LYMPHOCYTES ABSOLUTE AUTO 3.2 x10-3/uL (0.5-4.5); LYMPHOCYTES PERCENT AUTO 35.2 % (15.8-45.3); MEAN PLATELET VOLUME 9.5 fL (6.7-11.0); MONOCYTES ABSOLUTE AUTO 0.5 x10-3/uL (0.0-1.2); MONOCYTES PERCENT AUTO 5.5 % (5.5-15.2); NEUTROPHILS ABSOLUTE AUTO 5.0 x10-3/uL (1.7-6.9); NEUTROPHILS PERCENT AUTO 55.8 % (40.3-71.8); PLATELET COUNT,PLT 264 x10(3)uL (117-477); RED BLOOD CELL COUNT 5.35 x10(6)uL (3.90-5.90); RED CELL DISTRIBUTION WIDTH 15.2 % (12.4-15.0); WHITE BLOOD CELL COUNT,WBC 8.9 x10-3/uL (3.2-10.1)
[2025-06-22 10:43] VITALS: BP 143/83
== END 2025-06-22 10:10 ==
LOC: FB.ED 09:04
DX: I21.9 Acute myocardial infarction, unspecified (principal); I10 Essential (primary) hypertension; E66.9 Obesity, unspecified; Z88.0 Allergy status to penicillin; Z90.49 Acquired absence of other specified parts of digestive tract; Z68.33 Body mass index [BMI] 33.0-33.9, adult
CPT/HCPCS: 71045; 80053; 84484; 85025; 93005; 93010; 96365; 96375; 99285; A9270; J1644; J2765; J7030; J2305

== ENCOUNTER 2025-08-28 11:18 | Emergency (ER) | payer MEDICAID, MEDICARE ==
[2025-08-28] MEDS ORDERED: Sodium Chloride 0.9% 10 ML Syringe FLUSH PRN (11:31)
[2025-08-28 12:03] VITALS: BP 137/79; PULSE 52
[2025-08-28 12:08] LABS: BASOPHILS ABSOLUTE AUTO 0.1 x10-3/uL (0.0-0.3); BASOPHILS PERCENT AUTO 0.7 % (0.3-3.8); EOSINOPHILS ABSOLUTE AUTO 0.2 x10-3/uL (0.0-0.6); EOSINOPHILS PERCENT AUTO 2.3 % (0.1-6.8); LYMPHOCYTES ABSOLUTE AUTO 1.8 x10-3/uL (0.5-4.5); LYMPHOCYTES PERCENT AUTO 20.9 % (15.8-45.3); MEAN PLATELET VOLUME 9.7 fL (6.7-11.0); MONOCYTES ABSOLUTE AUTO 0.5 x10-3/uL (0.0-1.2); MONOCYTES PERCENT AUTO 5.3 % (5.5-15.2); NEUTROPHILS ABSOLUTE AUTO 6.2 x10-3/uL (1.7-6.9); NEUTROPHILS PERCENT AUTO 70.8 % (40.3-71.8); PLATELET COUNT,PLT 248 x10(3)uL (117-477); RED BLOOD CELL COUNT 5.37 x10(6)uL (3.90-5.90); RED CELL DISTRIBUTION WIDTH 14.2 % (12.4-15.0); WHITE BLOOD CELL COUNT,WBC 8.8 x10-3/uL (3.2-10.1)
[2025-08-28 12:12] LABS: BLOOD UREA NITROGEN,BUN 14 mg/dL (7-18); CARBON DIOXIDE,CO2 22 mmol/L (21-32); CHLORIDE,CL 106 mmol/L (100-110); CREATININE 0.7 mg/dL (0.70-1.30); EST CRCL DRUG DOSING (CG) 124.86 mL/min; ESTIMATED GFR 114 mL/min (>60); GLUCOSE RANDOM 111 mg/dL (80-116); POTASSIUM,K 4.2 mmol/L (3.5-5.3); SODIUM,NA 139 mmol/L (135-145)
[2025-08-28 12:19] LABS: A/G RATIO 1.2; ALANINE AMINOTRANSFERASE,ALT 26 U/L (12-36); ASPARTATE AMNIOTRANSFERASE,AST 19 IU/L (5-25); BILIRUBIN TOTAL 0.5 mg/dL (0.1-1.3); PROTEIN TOTAL,TP 7.7 g/dL (6.0-8.0)
[2025-08-28 12:20] LABS: LACTIC ACID 0.7 mmol/L (0.4-2.0)
[2025-08-28 12:25] LABS: PRO B-TYPE NATRIUR PEPT,BNPPRO 44 pg/mL (<=125)
== END 2025-08-28 16:30 | disposition home or self-care (01) ==
LOC: FB.ED 11:18
DX: I24.9 Acute ischemic heart disease, unspecified (principal); I10 Essential (primary) hypertension; Z88.0 Allergy status to penicillin; Z90.49 Acquired absence of other specified parts of digestive tract; Z87.891 Personal history of nicotine dependence
CPT/HCPCS: 36415; 71045; 71045-26; 80053; 83605; 83735; 83880; 84484; 85025; 86140; 93005; 93010; 99284; 99285